=== PATIENT | female | born 1965 | race Caucasian/White ===

== ENCOUNTER → 2016-12-18 | Outpatient (CLI) | payer OTHER ==
[2016-12-18 12:15] LABS: INR 1.1 (<1.2); Prothrombin Time 11.1 sec (9.0-12.0)
== END | disposition home or self-care (01) ==
LOC: LABWHC1 11:41
PROVIDERS: ATTEND Dentist Oral and Maxillofacial Surgery
DX: D68.9 Coagulation defect, unspecified (principal)
CPT/HCPCS: 36415; 85610

== ENCOUNTER 2017-04-14 08:33 | Day surgery (SDC) | payer OTHER ==
[2017-04-10 12:06] VITALS: BMI 26.6
[~2017-04-14 08:33] MED LIST: DEXAMETHASONE SOD PHOSPHATE 10 MG/ML 1 ML VIAL IV ONE; HYDROmorphone 0.5 MG/0.5 ML SYRINGE IVP PRN; LACTATED RINGERS 1,000 ML IV SCH; MIDAZOLAM 2 MG/2 ML VIAL IV PRN; ONDANSETRON 4 MG/2 ML VIAL IVP ONE; Pre Op ABX Message 1 EACH MISC MISCELLANE ONE
[2017-04-14 09:25] VITALS: BP 111/72; PULSE 76; RESP 16; TEMP 98.9
[2017-04-14] MEDS ORDERED: LIDOCAINE 1% 20 ML VIAL (10MG/ML) FOR IV START INTRADERMA ONE (09:42)
[2017-04-14 09:54] LABS: INR 1.8 (<1.2); Prothrombin Time 16.7 sec (9.0-12.0)
== END 2017-04-14 10:16 | disposition home or self-care (01) ==
LOC: OR 08:33
PROVIDERS: ATTEND Obstetrics & Gynecology
DX: R93.8 Abnormal findings on diagnostic imaging of other specified body structures (principal); N88.2 Stricture and stenosis of cervix uteri; Z86.718 Personal history of other venous thrombosis and embolism; Z87.42 Personal history of other diseases of the female genital tract; Z80.49 Family history of malignant neoplasm of other genital organs; Z79.2 Long term (current) use of antibiotics; Z79.899 Other long term (current) drug therapy; Z88.1 Allergy status to other antibiotic agents
CPT/HCPCS: 85610

== ENCOUNTER 2017-04-21 07:28 | Day surgery (SDC) | payer OTHER ==
[2017-04-15 14:53] VITALS: BMI 27.1
[~2017-04-21 07:28] MED LIST changes: -MIDAZOLAM 2 MG/2 ML VIAL IV PRN
[2017-04-21 08:10] LABS: INR 1.2 (<1.2); Prothrombin Time 11.8 sec (9.0-12.0)
[2017-04-21] MEDS ORDERED: SUCCINYLCHOLINE CHLORIDE 100 MG/5 ML SYR IV ONE (08:42)
[2017-04-21] MEDS ORDERED: PROPOFOL 10 MG/ML 20 ML VIAL IV ONE (08:42)
[2017-04-21] MEDS ORDERED: KETOROLAC 30 MG/ML 1 ML VIAL ONE (08:42)
[2017-04-21] MEDS ORDERED: MIDAZOLAM 2 MG/2 ML VIAL ONE (08:42)
[2017-04-21] MEDS ORDERED: fentaNYL (PF) 50 MCG/ML 2 ML AMP ONE (08:42)
[2017-04-21] MEDS ORDERED: LIDOCAINE 1% INJ 10MG/ML (20 ML MDV) ONE (08:42)
--- NOTE | 2017-04-21 09:03 | P.OP ---
Date of Procedure: 04/21/17 Preoperative Diagnosis: Postmenopausal bleeding, increased endometrial thickness sonographically, cervical stenosis Postoperative Diagnosis: Pathology pending Procedure(s) Performed: Hysteroscopy, D&C Anesthesia: BARBA Surgeon: Mariaa Al Machine Etcher #1: Stated None Estimated Blood Loss (ml): 10 IV fluids (ml): 450 Urine output (ml): 200 Pathology: other (Endometrial curettings) Condition: stable Disposition: PACU Operative Findings: Essentially negative appearing intrauterine cavity, no obvious polyps fibroids or defects. Description of Procedure: Patient is brought to the operating suite where a general anesthetic is administered. She's placed in the dorsal lithotomy position. The cervix, vagina, perineum and lower abdomen are all prepped and draped in the usual sterile fashion. The appropriate timeout is performed to assure proper patient and procedural identification. Urine hCG is negative. Examination under anesthesia reveals a firm long closed cervix, small anteverted uterus and bilateral adnexa negative. The bladder is drained for approximately 200 mL of clear yellow urine. Weighted speculum was placed into the vagina. Anterior lip of the cervix is grasped with a double-tooth tenaculum. Uterus sounds to a depth of 8 cm in the anteverted position. The cervix is gently and systematically dilated using Hanks dilators. Hysteroscope was introduced and fluid is infused. The cavity is distended and inspected. It appears essentially negative to inspection, no obvious polyps, fibroids, tumors or defects. Hysteroscope was removed. A medium sharp curette is used and the cavity is gently and systematically curettaged for a scant amount of tissue. This is sent to pathology for evaluation. All sponge needle and enhancement counts are correct at the end of the procedure. Toradol is given prior to leaving the operative suite.. Pad is placed, hemostasis is excellent. All sponge needle and enhancement counts are correct at the end of the procedure. Patient is brought back to recovery room in very good condition with stable vital signs including blood pressure 107/64, pulse 71. Toradol is given prior to leaving the operative suite. Patient will follow-up with me in the office in 2 weeks.
[2017-04-21 09:20] VITALS: TEMP 97
[2017-04-21 10:23] VITALS: BP 113/73; PULSE 78; RESP 18
== END 2017-04-21 11:00 | disposition home or self-care (01) ==
LOC: OR 07:28
PROVIDERS: ATTEND Obstetrics & Gynecology
DX: N84.0 Polyp of corpus uteri (principal); N88.2 Stricture and stenosis of cervix uteri; N95.0 Postmenopausal bleeding; K21.9 Gastro-esophageal reflux disease without esophagitis; Z88.1 Allergy status to other antibiotic agents; Z79.01 Long term (current) use of anticoagulants; Z79.899 Other long term (current) drug therapy; Z86.718 Personal history of other venous thrombosis and embolism; Z86.711 Personal history of pulmonary embolism; Z98.51 Tubal ligation status; Z80.49 Family history of malignant neoplasm of other genital organs; Z80.0 Family history of malignant neoplasm of digestive organs; Z80.3 Family history of malignant neoplasm of breast
CPT/HCPCS: 58558; 81025; 88305; 85610; J2250; J1100; J2405; J2001; J3010; J1885; J0330; J2704

== ENCOUNTER → 2018-04-30 | Outpatient (CLI) | payer BC ==
[2018-04-30 17:10] LABS: Basophils % (A) 1 %; Eosinophils % (A) 2 %; HCT 39.2 % (34.0-46.0); Lymphocytes % (A) 37 %; MCH 31.4 pg (25.0-35.0); MCHC 33.3 g/dL (31.0-37.0); MCV 94.4 fL (80.0-100.0); Mean Platelet Volume 6.8; Monocytes % (A) 5 %; Neutrophils % (A) 53 %; Platelet Count 239 k/uL (150-450); RBC 4.15 m/uL (3.80-5.40); RDW 12.6 % (11.5-15.5)
[2018-04-30 17:11] LABS: Eosinophils # (A) 0.1 k/uL (0-0.7); Lymphocytes # (A) 1.9 k/uL (1.0-4.8); Monocytes # (A) 0.3 k/uL (0-1.0); Neutrophils # (A) 2.7 k/uL (1.3-7.7)
[2018-04-30 17:28] LABS: Appearance,Urine Clear (Clear); Bacteria,Urine Rare /hpf; Bilirubin,Urine Negative (Negative); Blood,Urine Moderate (Negative); Color,Urine Yellow; Glucose,Urine (UA) Negative (Negative); Ketones,Urine Negative (Negative); Leukocyte Esterase,Urine Negative (Negative); Mucus,Urine Rare /hpf; Nitrite,Urine Negative (Negative); PH, Urine 5.5 (5.0-8.0); Protein,Urine Negative (Negative); RBC,Urine 20 /hpf (0-5); Specific Gravity,Urine 1.012 (1.001-1.035); Squamous Epithelial Cell,Urine 4 /hpf (0-4); Urobilinogen,Urine <2.0 mg/dL (<2.0); WBC,Urine <1 /hpf (0-5)
[2018-05-01 02:22] LABS: Iron Saturation 21.15 (12.00-45.00)
[2018-05-01 02:37] LABS: Vitamin D 25 Hydroxy 23.7 ng/mL (30.0-100.0)
[2018-05-01 02:44] LABS: Calcium 8.9 mg/dL (8.7-10.3); Magnesium 1.8 mg/dL (1.5-2.4); Phosphorus 3.5 mg/dL (2.4-5.1); Potassium 4.1 mmol/L (3.5-5.5); Uric Acid 5.4 mg/dL (2.9-7.7)
== END | disposition home or self-care (01) ==
LOC: LABWHC1 16:43
PROVIDERS: ATTEND Nurse Practitioner Family
DX: N39.0 Urinary tract infection, site not specified (principal); M10.9 Gout, unspecified; R31.29 Other microscopic hematuria; D50.9 Iron deficiency anemia, unspecified; E83.39 Other disorders of phosphorus metabolism
CPT/HCPCS: 36415; 80048; 81001; 82306; 82728; 83540; 83550; 83735; 83970; 84100; 84550; 85025

== ENCOUNTER → 2018-06-30 | Outpatient (CLI) | payer BC ==
--- NOTE | 2018-06-30 16:10 | XR ---
EXAMINATION TYPE: XR chest 2V DATE OF EXAM: 06/30/2018 COMPARISON: NONE HISTORY: Cough TECHNIQUE: Frontal and lateral views of the chest are obtained. FINDINGS: Cardiac mediastinal silhouette, pulmonary vascularity and gilda are within normal limits. P atient is rotated. No evident airspace disease, pneumothorax, or pleural effusion. There is a calcifi cation present in the upper-outer convincing IMPRESSION: No acute cardiopulmonary process. Indeterminate calcification.
== END | disposition home or self-care (01) ==
LOC: RADXRMAIN 13:24
PROVIDERS: ATTEND Family Medicine
DX: J18.9 Pneumonia, unspecified organism (principal)
CPT/HCPCS: 71046

== ENCOUNTER 2018-09-01 13:50 | Emergency (ER) | payer BC ==
[2018-09-01 14:08] VITALS: RESP 16
[2018-09-01] MEDS ORDERED: SODIUM CHLORIDE 0.9% 500 ML 500 ML IV STA (14:30)
[2018-09-01] MEDS ORDERED: DIAZEPAM 5 MG/ML 2 ML INJ IVP STA (14:30)
[2018-09-01 14:44] LABS: Glucose,Whole Blood 106 mg/dL (75-99)
[2018-09-01 15:10] LABS: Basophils % (A) 1 %; Eosinophils # (A) 0.2 k/uL (0-0.7); Eosinophils % (A) 3 %; HGB 15.4 gm/dL (11.4-16.0); Lymphocytes # (A) 1.8 k/uL (1.0-4.8); Lymphocytes % (A) 30 %; MCH 30.9 pg (25.0-35.0); MCHC 33.5 g/dL (31.0-37.0); MCV 92.3 fL (80.0-100.0); Mean Platelet Volume 7.3; Monocytes # (A) 0.3 k/uL (0-1.0); Monocytes % (A) 5 %; Neutrophils # (A) 3.6 k/uL (1.3-7.7); Neutrophils % (A) 59 %; Platelet Count 238 k/uL (150-450); RBC 4.98 m/uL (3.80-5.40); WBC 6.1 k/uL (3.8-10.6)
[2018-09-01 15:17] LABS: ALT 35 U/L (9-52); AST 21 U/L (14-36); Albumin 4.9 g/dL (3.5-5.0); Alkaline Phosphatase 80 U/L (38-126); Anion Gap 11 mmol/L; Blood Urea Nitrogen 10 mg/dL (7-17); Calcium 10.1 mg/dL (8.4-10.2); Carbon Dioxide 25 mmol/L (22-30); Chloride 104 mmol/L (98-107); Glucose 100 mg/dL (74-99); Sodium 140 mmol/L (137-145); Total Bilirubin 0.3 mg/dL (0.2-1.3); Total Protein 7.9 g/dL (6.3-8.2)
[2018-09-01 15:22] LABS: INR 2.2 (<1.2); Prothrombin Time 21.2 sec (9.0-12.0)
--- NOTE | 2018-09-01 15:23 | XR ---
EXAMINATION TYPE: XR chest 2V DATE OF EXAM: 09/01/2018 COMPARISON: 06/30/2018 TECHNIQUE: PA and lateral views submitted. HISTORY: Dizziness FINDINGS: The lungs are clear and there is no pneumothorax, pleural effusion, or focal pneumonia. IMPRESSION: 1. No acute process.
[2018-09-01 15:57] LABS: Mucus,Urine Rare /hpf; RBC,Urine 1 /hpf (0-5); Squamous Epithelial Cell,Urine 1 /hpf (0-4)
--- NOTE | 2018-09-01 16:18 | CT ---
EXAMINATION TYPE: CT brain wo con DATE OF EXAM: 09/01/2018 COMPARISON: None HISTORY: Dizziness today CT DLP: 1169.[address] of the brain was performed. The ventricles, basal cisterns and sulci overlying the cerebral convexities demonstrate mild enlargem ent. There is no evidence for intracranial hemorrhage or sulcal effacement. There is decreased attenuation about the periventricular white matter and deep white matter of both c erebral hemispheres, compatible with chronic small vessel ischemia. Differential diagnosis does inclu de demyelination. No mass effects are seen.No midline shift. Osseous calvarium is intact. If symptoms persist consider MRI. IMPRESSION: 1. Age related atrophic and chronic small vessel ischemic change without acute intracranial process s een at this time.
--- NOTE | 2018-09-01 16:21 | CT ---
EXAMINATION TYPE: CT angio head neck DATE OF EXAM: 09/01/2018 COMPARISON: None HISTORY: Dizziness today CT DLP: 457.4 mGycm CONTRAST: Performed with IV Contrast, patient injected with 50 mL of Isovue 370. Combination Contrast CTA cervical carotids and [place] CTA cervical carotids with 3-D recons truction Contrast CTA of the cervical carotids was performed 3-D reconstruction imaging obtained at a separate workstation. Right carotid system: No significant plaque is seen of the right common carotid artery. There is No significant plaque also noted at the carotid bulb and proximal ICA. No significant diameter reductio n. ECA is patent. Right vertebral artery appears unremarkable. Left carotid system: No significant plaque is seen of the left common carotid artery. There is No si gnificant plaque also noted at the carotid bulb and proximal ICA. No significant diameter reduction. ECA is patent. Left vertebral artery appears unremarkable. IMPRESSION: 1. No significant diameter reduction to account for the patient's symptoms. CTA [place] with 3-D reconstruction Contrast CTA of the [place] of [place] was performed 3-D reconstruction imaging obtained at a separate workstation. Vertebrobasilar system as well as intracranial portions of the internal carotid arteries and their ma yadira tributaries are patent. I do not see evidence for sizable aneurysm or vascular malformation. Pl ease note MRI provides greater sensitivity and specificity. Visualized brain appears grossly unremar kable. IMPRESSION: 1. No significant abnormality.
--- NOTE | 2018-09-01 16:46 | ED ---
Dizziness HPI - General Chief Complaint: Dizziness Stated Complaint: dizziness Time Seen by Provider: 09/01/18 14:18 Source: patient Mode of arrival: wheelchair Limitations: no limitations - History of Present Illness Initial Comments: 53yo female presenting today for cc of dizziness. Pt states that midmorning today she developed sensation that her head was heavy and dizziness when lying down. Patient has history of Mnire's. She states she did have ringing in ear 2 day prior to onset of dizziness and took her lasix as prescribed by ENT. Pt states that the dizziness she felt today was slightly different from her typical vertigo and presented for evaluation. Patient denies syncope, presyncope, chest pain, dyspnea, dyspnea on exertion she denies nausea vomiting ataxia she denies muscle weakness of the upper or lower extremities she denies any facial asymmetry she denies speech or memory changes she denies any confusion or altered mentation. Patient denies leg swelling. Patient is on anticoagulation therapy for history of DVT. Patient drove herself to the emergency department. Upon arrival patient is alert and oriented 3. Appearing well no acute distress, ambulating without difficulty. - Related Data Home Medications Medication Instructions Recorded Confirmed Biotin 1 tab PO DAILY 06/06/15 09/01/18 L.acidoph,Paracasei, B.lactis 1 cap PO DAILY 06/06/15 09/01/18 [Probiotic] Magnesium 200 mg PO DAILY 06/06/15 09/01/18 Pantoprazole Sodium [Protonix] 20 mg PO DAILY 06/06/15 09/01/18 Potassium Chloride [Klor-Con 20] 20 meq PO DAILY 06/06/15 09/01/18 Warfarin [Coumadin] 6 mg PO DAILY 06/06/15 09/01/18 Biote Dim 150mg 1 tab PO DAILY 09/01/18 09/01/18 Calcitriol [Rocaltrol] 0.25 mcg PO FR 09/01/18 09/01/18 Cholecalciferol (Vitamin D3) 2,000 unit PO BID 09/01/18 09/01/18 [Vitamin D3] Progesterone, Micronized 200 mg PO DAILY 09/01/18 09/01/18 [Progesterone] Allergies Allergy/AdvReac Type Severity Reaction Status Date / Time Cephalosporins Allergy Unknown Elevated Verified 09/01/18 14:22 Heart Rate, Rash Review of Systems ROS Statement: Those systems with pertinent positive or pertinent negative responses have been documented in the HPI. ROS Other: All systems not noted in ROS Statement are negative. Past Medical History Past Medical History: Deep Vein Thrombosis (DVT), Eye Disorder, GERD/Reflux, Pul monary Embolus (PE) Additional Past Medical History / Comment(s): MIGRAINE HEADACHES,"KIDNEY DISEASE "- DOCTOR IS WATCHING History of Any Multi-Drug Resistant Organisms: None Reported Past Surgical History: No Surgical Hx Reported Past Anesthesia/Blood Transfusion Reactions: No Reported Reaction Past Psychological History: No Psychological Hx Reported Smoking Status: Never smoker - Past Family History Mother Family Medical History: No Reported History Father Family Medical History: Cancer Additional Family Medical History / Comment(s): COLON CANCER General Exam - General Exam Comments Initial Comments: General: The patient is awake and alert, in no distress, and does not appear acutely ill. Eye: +3 mm pupils are equal, round and reactive to light, extra-ocular movements are intact. No nystagmus. There is normal conjunctiva bilaterally. No signs of icterus. Tympanic membranes within normal limits bilaterally Ears, nose, mouth and throat: There are moist mucous membranes and no oral lesions. Neck: The neck is supple, there is no tenderness or JVD. Cardiovascular: There is a regular rate and rhythm. No murmur, rub or gallop is appreciated. Respiratory: Lungs are clear to auscultation, respirations are non-labored, b reath sounds are equal. No wheezes, stridor, rales, or rhonchi. Gastrointestinal: Soft, non-distended, non-tender abdomen without masses or organomegaly noted. There is no rebound or guarding present. Musculoskeletal: Normal ROM, no tenderness. Strength 5/5. Sensation intact. Pulses equal bilaterally 2+. Neurological: A&O x 3. CN II-XII intact, memory intact to immediately, intermediate and economic research analyst recall. Able to follow simple verbal. Able to name a common object (pen). High quality, labial (pa) and lingual (la) speech. Low quality posterior pharynx/larynx (ga) voice sounds. Able to express general knowledge (days in a week). No hemineglect or inattention noted. Finger agnosia (-) and spatially oriented (identified L index finger touched R shoulder with L index finger). Light touch and temperature sensation present over the face, chest, abdomen, back, UE bilaterally, and LE bilaterally. Able to localize point during point localization b/l and extinction. No visible bulk atrophy, hypertrophy, fasciculations, or myoclonus of the UE or LE b/l. Full PROM in UE and LE b/l. Bilateral muscle strength 5/5 for the following muscles: deltoid, biceps, triceps, brachioradialis, wrist extensors/flexor, hip flexor, hip abductors/adductors, hamstrings, quadriceps, feet dorsiflexors/plantar flexors. Finger to nose, finger to the examiners finger, and heel to cavazos coordinated and accurate b/l. Coordinated and even demonstration of hand flip, finger to thumb, and toe tap b/l. Gait is coordinated and even in stride with tandem, toe and heel walk. (-) Romberg. (-) pronator drift. No nuchal rigidity. (-) Skin: Skin is warm and dry and no rashes or lesions are noted. Psychiatric: Cooperative, appropriate mood & affect, normal judgment. Limitations: no limitations Course Vital Signs 09/01/18 09/01/18 09/01/18 14:05 16:16 16:20 Temperature 98.8 F 98.6 F Pulse Rate 89 88 80 Respiratory 16 16 18 Rate Blood Pressure 124/80 107/69 O2 Sat by Pulse 98 93 L 98 Oximetry 09/01/18 17:13 Temperature 98.1 F Pulse Rate 82 Respiratory 16 Rate Blood Pressure 103/72 O2 Sat by Pulse 98 Oximetry EKG Findings - EKG Comments: EKG Findings:: A 12-lead EKG was performed and shows the following: Rate is 88bpm, and rhythm is normal sinus. There are normal QRS complexes and normal R- wave progression. ST segments have no elevation or depression, and MS segments appear normal. MS interval 134 ms, QRS duration 88 ms, QT/QTC 354/428 ms. Reviewed by attending Dr. Joshi and myself. Medical Decision Making - Medical Decision Making 53-year-old female presenting for dizziness. History of Mnire's. Patient does admit to ringing in the right ear 2 days prior to onset of dizziness. Patient has been taking Lasix as prescribed by ENT. Patient denies any focal neurological deficits. No focal neurological deficits on examination. Patient denies any chest pain short suppress his dyspnea on exertion or lower extremity swelling. The patient stated that dizziness was slightly different than her typical Mnire's CT without contrast and CT angio obtained there was no evidence of disease of posterior circulation no acute intracranial process. At this time I feel patient is stable for discharge with outpatient ENT and neurology follow-up. I did recommend MRI if symptoms persist. If symptoms worsen or change patient is to return to the emergency department. I discussed the case with attending provider Dr. Joshi reviewed imaging studies as well as laboratory values. He is agreeable patient care plan at discharge. Upon patient's reevaluation she states her symptoms have resolved after the Valium. Patient appears well there continues to be no evidence of focal neurological deficits. Patient discharged appearing well aware fall return parameters importance of outpatient follow-up. - Lab Data Result diagrams: 09/01/18 14:48 09/01/18 14:48 Lab Results 09/01/18 09/01/18 09/01/18 Range/Units 14:43 14:48 14:48 WBC 6.1 (3.8-10.6) k/uL RBC 4.98 (3.80-5.40) m/uL Hgb 15.4 (11.4-16.0) gm/dL Hct 46.0 (34.0-46.0) % MCV 92.3 (80.0-100.0) fL MCH 30.9 (25.0-35.0) pg MCHC 33.5 (31.0-37.0) g/dL RDW 14.0 (11.5-15.5) % Plt Count 238 (150-450) k/uL Neutrophils % 59 % Lymphocytes % 30 % Monocytes % 5 % Eosinophils % 3 % Basophils % 1 % Neutrophils # 3.6 (1.3-7.7) k/uL Lymphocytes # 1.8 (1.0-4.8) k/uL Monocytes # 0.3 (0-1.0) k/uL Eosinophils # 0.2 (0-0.7) k/uL Basophils # 0.0 (0-0.2) k/uL PT (9.0-12.0) sec INR (<1.2) Sodium 140 (137-145) mmol/L Potassium 4.0 (3.5-5.1) mmol/L Chloride 104 (98-107) mmol/L Carbon Dioxide 25 (22-30) mmol/L Anion Gap 11 mmol/L BUN 10 (7-17) mg/dL Creatinine 0.80 (0.52-1.04) mg/dL Est GFR (CKD-EPI)AfAm >90 (>60 ml/min/1.73 sqM) Est GFR (CKD-EPI)NonAf 85 (>60 ml/min/1.73 sqM) Glucose 100 H (74-99) mg/dL POC Glucose (mg/dL) 106 H (75-99) mg/dL POC Glu Psychotherapist ID Yamileth Dover Calcium 10.1 (8.4-10.2) mg/dL Total Bilirubin 0.3 (0.2-1.3) mg/dL AST 21 (14-36) U/L ALT 35 (9-52) U/L Alkaline Phosphatase 80 (38-126) U/L Troponin I (0.000-0.034) ng/mL Total Protein 7.9 (6.3-8.2) g/dL Albumin 4.9 (3.5-5.0) g/dL Urine Color Urine Appearance (Clear) Urine pH (5.0-8.0) Ur Specific Starlight (1.001-1.035) Urine Protein (Negative) Urine Glucose (UA) (Negative) Urine Ketones (Negative) Urine Blood (Negative) Urine Nitrite (Negative) Urine Bilirubin (Negative) Urine Urobilinogen (<2.0) mg/dL Ur Leukocyte Esterase (Negative) Urine RBC (0-5) /hpf Urine WBC (0-5) /hpf Ur Squamous Epith Cells (0-4) /hpf Amorphous Sediment (None) /hpf Urine Bacteria (None) /hpf Urine Mucus (None) /hpf 09/01/18 09/01/18 09/01/18 Range/Units 14:48 14:48 14:55 WBC (3.8-10.6) k/uL RBC (3.80-5.40) m/uL Hgb (11.4-16.0) gm/dL Hct (34.0-46.0) % MCV (80.0-100.0) fL MCH (25.0-35.0) pg MCHC (31.0-37.0) g/dL RDW (11.5-15.5) % Plt Count (150-450) k/uL Neutrophils % % Lymphocytes % % Monocytes % % Eosinophils % % Basophils % % Neutrophils # (1.3-7.7) k/uL Lymphocytes # (1.0-4.8) k/uL Monocytes # (0-1.0) k/uL Eosinophils # (0-0.7) k/uL Basophils # (0-0.2) k/uL PT 21.2 H (9.0-12.0) sec INR 2.2 H (<1.2) Sodium (137-145) mmol/L Potassium (3.5-5.1) mmol/L Chloride (98-107) mmol/L Carbon Dioxide (22-30) mmol/L Anion Gap mmol/L BUN (7-17) mg/dL Creatinine (0.52-1.04) mg/dL Est GFR (CKD-EPI)AfAm (>60 ml/min/1.73 sqM) Est GFR (CKD-EPI)NonAf (>60 ml/min/1.73 sqM) Glucose (74-99) mg/dL POC Glucose (mg/dL) (75-99) mg/dL POC Glu Psychotherapist ID Calcium (8.4-10.2) mg/dL Total Bilirubin (0.2-1.3) mg/dL AST (14-36) U/L ALT (9-52) U/L Alkaline Phosphatase (38-126) U/L Troponin I <0.012 (0.000-0.034) ng/mL Total Protein (6.3-8.2) g/dL Albumin (3.5-5.0) g/dL Urine Color Colorless Urine Appearance Clear (Clear) Urine pH 5.5 (5.0-8.0) Ur Specific Starlight 1.003 (1.001-1.035) Urine Protein Negative (Negative) Urine Glucose (UA) Negative (Negative) Urine Ketones Negative (Negative) Urine Blood Small H (Negative) Urine Nitrite Negative (Negative) Urine Bilirubin Negative (Negative) Urine Urobilinogen <2.0 (<2.0) mg/dL Ur Leukocyte Esterase Negative (Negative) Urine RBC 1 (0-5) /hpf Urine WBC 1 (0-5) /hpf Ur Squamous Epith Cells 1 (0-4) /hpf Amorphous Sediment Rare H (None) /hpf Urine Bacteria Rare H (None) /hpf Urine Mucus Rare H (None) /hpf Disposition Clinical Impression: Dizziness Disposition: HOME SELF-CARE Condition: Good Instructions (If sedation given, give patient instructions): Dizziness (ED) Additional Instructions: Please use medication as discussed. Please follow-up with ENT as discussed. Please follow up with neurology. Please follow-up with family doctor in the next 2 days.. Please return to emergency room if the symptoms increase or worsen or for any other concerns. Is patient prescribed a controlled substance at d/c from ED?: No Referrals: Jd Dailey DO [Primary Care Provider] - 1-2 days Mathew Junior DO [Doctor of Osteopathic Medicine] - 1-2 days Luis Canales DO [STAFF PHYSICIAN] - 1-2 days Time of Disposition: 16:45
[2018-09-01 17:14] VITALS: BP 103/72; PULSE 82; TEMP 98.1
[2018-09-01 17:15] LABS: Amorphous Sediment,Urine Rare /hpf; Appearance,Urine Clear (Clear); Bacteria,Urine Rare /hpf; Bilirubin,Urine Negative (Negative); Blood,Urine Small (Negative); Color,Urine Colorless; Glucose,Urine (UA) Negative (Negative); Ketones,Urine Negative (Negative); Leukocyte Esterase,Urine Negative (Negative); Nitrite,Urine Negative (Negative); PH, Urine 5.5 (5.0-8.0); Protein,Urine Negative (Negative); Specific Gravity,Urine 1.003 (1.001-1.035); Urobilinogen,Urine <2.0 mg/dL (<2.0); WBC,Urine 1 /hpf (0-5)
== END 2018-09-01 17:24 | disposition home or self-care (01) ==
LOC: EC 13:50
DX: R42 Dizziness and giddiness (principal); K21.9 Gastro-esophageal reflux disease without esophagitis; Z86.711 Personal history of pulmonary embolism; Z86.718 Personal history of other venous thrombosis and embolism; Z79.01 Long term (current) use of anticoagulants; Z79.52 Long term (current) use of systemic steroids; Z79.899 Other long term (current) drug therapy; Z88.1 Allergy status to other antibiotic agents
CPT/HCPCS: 36415; 93005; 80053; 84484; 85025; 85610; 81001; 71046; 70496; 70450; 70498; 99284; 96374; 96361; J3360; Q9967

== ENCOUNTER → 2018-11-03 | Outpatient (CLI) | payer BC ==
[2018-11-03 16:51] LABS: Basophils % (A) 1 %; Eosinophils # (A) 0.2 k/uL (0-0.7); Eosinophils % (A) 3 %; HCT 39.9 % (34.0-46.0); HGB 13.3 gm/dL (11.4-16.0); Lymphocytes # (A) 1.8 k/uL (1.0-4.8); Lymphocytes % (A) 35 %; MCH 31.3 pg (25.0-35.0); MCHC 33.4 g/dL (31.0-37.0); MCV 93.7 fL (80.0-100.0); Monocytes # (A) 0.3 k/uL (0-1.0); Monocytes % (A) 5 %; Neutrophils # (A) 2.9 k/uL (1.3-7.7); Neutrophils % (A) 55 %; Platelet Count 204 k/uL (150-450); RBC 4.26 m/uL (3.80-5.40); RDW 12.9 % (11.5-15.5); WBC 5.3 k/uL (3.8-10.6)
[2018-11-03 17:16] LABS: Appearance,Urine Cloudy (Clear); Bilirubin,Urine Negative (Negative); Blood,Urine Small (Negative); Calcium Oxalate Crystals,Urine Many /hpf; Color,Urine Yellow; Glucose,Urine (UA) Negative (Negative); Ketones,Urine Negative (Negative); Leukocyte Esterase,Urine Negative (Negative); Mucus,Urine Rare /hpf; Nitrite,Urine Negative (Negative); Protein,Urine Negative (Negative); RBC,Urine 24 /hpf (0-5); Specific Gravity,Urine 1.018 (1.001-1.035); Squamous Epithelial Cell,Urine 2 /hpf (0-4); Urobilinogen,Urine <2.0 mg/dL (<2.0); WBC,Urine 4 /hpf (0-5)
[2018-11-03 23:17] LABS: Parathyroid Hormone Intact 88.4 pg/mL (14.0-72.0)
[2018-11-03 23:27] LABS: Iron Saturation 17.82 (12.00-45.00)
[2018-11-03 23:36] LABS: Vitamin D 25 Hydroxy 21.2 ng/mL (30.0-100.0)
[2018-11-04 04:25] LABS: Total Protein,Urine Random 5.8 mg/dL (0.0-13.5)
[2018-11-04 06:10] LABS: African American GFR (CKD) 66.4 (60.0-200.0); Albumin 4.2 g/dL (3.80-4.90); Anion Gap 9.7 mmol/L (4.00-12.00); BUN/Creat Ratio 10.91 Ratio (12.00-20.00); Carbon Dioxide 26.3 mmol/L (21.6-31.8); Potassium 3.9 mmol/L (3.5-5.5); Uric Acid 5.7 mg/dL (2.9-7.7)
[2018-11-04 06:22] LABS: Creatinine,Urine Random 133.9 mg/dL
== END | disposition home or self-care (01) ==
LOC: LABWHC1 16:29
PROVIDERS: ATTEND Internal Medicine Nephrology
DX: E55.9 Vitamin D deficiency, unspecified (principal); N17.9 Acute kidney failure, unspecified; M10.9 Gout, unspecified; N39.0 Urinary tract infection, site not specified; D64.9 Anemia, unspecified; R80.9 Proteinuria, unspecified
CPT/HCPCS: 36415; 80048; 81001; 82040; 82306; 82570; 82728; 83540; 83550; 83735; 83970; 84100; 84156; 84550; 85025

== ENCOUNTER → 2018-12-14 | Outpatient (CLI) | payer BC ==
--- NOTE | 2018-12-14 13:38 | US ---
EXAMINATION TYPE: US kidneys/renal and bladder DATE OF EXAM: 12/14/2018 COMPARISON: NONE CLINICAL HISTORY: N18.2 chronic kidney disease, stage 2. CKD, stage 2 EXAM MEASUREMENTS: Right Kidney: 10.3 x 4.6 x 4.2 cm Left Kidney: 10.6 x 4.4 x 4.3 cm Post Void Residual Volume: 23.7 mL Right Kidney: Mildly dilated renal pelvis, otherwise appeared wnl Left Kidney: Lower pole gassed out, otherwise appeared wnl Bladder: wnl Bilateral Jets seen: Yes Normal Post Void Residual: Yes There is mild right-sided pyelocaliectasis No nephrolithiasis is seen. No masses are identified. Th e urinary bladder is anechoic. Bilateral ureteral jets are seen. IMPRESSION: Mild right-sided hydronephrosis may warrant further clinical workup.
== END | disposition home or self-care (01) ==
LOC: RADUSWWP 12:46
PROVIDERS: ATTEND Internal Medicine Nephrology
DX: N18.2 Chronic kidney disease, stage 2 (mild) (principal)
CPT/HCPCS: 76770

== ENCOUNTER → 2019-05-16 | Outpatient (CLI) | payer BC ==
[2019-05-16 17:33] LABS: Basophils % (A) 1 %; Eosinophils # (A) 0.1 k/uL (0-0.7); Eosinophils % (A) 3 %; HCT 41.3 % (34.0-46.0); HGB 13.3 gm/dL (11.4-16.0); Lymphocytes # (A) 1.7 k/uL (1.0-4.8); Lymphocytes % (A) 39 %; MCH 30.9 pg (25.0-35.0); MCHC 32.3 g/dL (31.0-37.0); Mean Platelet Volume 7.3; Monocytes # (A) 0.3 k/uL (0-1.0); Monocytes % (A) 6 %; Neutrophils # (A) 2.1 k/uL (1.3-7.7); Neutrophils % (A) 49 %; Platelet Count 215 k/uL (150-450); RBC 4.31 m/uL (3.80-5.40); RDW 12.5 % (11.5-15.5); WBC 4.3 k/uL (3.8-10.6)
[2019-05-16 17:38] LABS: Appearance,Urine Cloudy (Clear); Bacteria,Urine Rare /hpf; Bilirubin,Urine Negative (Negative); Blood,Urine Small (Negative); Color,Urine Light Yellow; Glucose,Urine (UA) Negative (Negative); Hyaline Casts,Urine 1 /lpf (0-2); Ketones,Urine Negative (Negative); Leukocyte Esterase,Urine Negative (Negative); Mucus,Urine Rare /hpf; Nitrite,Urine Negative (Negative); PH, Urine 5.5 (5.0-8.0); Protein,Urine Negative (Negative); RBC,Urine 4 /hpf (0-5); Specific Gravity,Urine 1.011 (1.001-1.035); Squamous Epithelial Cell,Urine 6 /hpf (0-4); Urobilinogen,Urine <2.0 mg/dL (<2.0); WBC,Urine 1 /hpf (0-5)
[2019-05-17 01:51] LABS: % Iron Saturation 14.84 (12.00-45.00); Albumin 4.2 g/dL (3.80-4.90); Anion Gap 5.3 mmol/L (4.00-12.00); BUN/Creat Ratio 14.44 Ratio (12.00-20.00); Calcium 9.1 mg/dL (8.7-10.3); Carbon Dioxide 25.7 mmol/L (21.6-31.8); Magnesium 1.9 mg/dL (1.5-2.4); Non-African American GFR(CKD) 72.5 (60.0-200.0); Phosphorus 3.2 mg/dL (2.4-5.1); Potassium 4.1 mmol/L (3.5-5.5); Uric Acid 5.7 mg/dL (2.9-7.7)
[2019-05-17 01:59] LABS: Creatinine,Urine Random 59.9 mg/dL
[2019-05-17 02:00] LABS: Ferritin 66.4 ng/mL (10.0-291.0); Total Protein,Urine Random 4.1 mg/dL (0.0-13.5)
== END | disposition home or self-care (01) ==
LOC: LABWHC1 16:57
PROVIDERS: ATTEND Nurse Practitioner Family
DX: E55.9 Vitamin D deficiency, unspecified (principal); N18.2 Chronic kidney disease, stage 2 (mild); D63.1 Anemia in chronic kidney disease; M10.9 Gout, unspecified
CPT/HCPCS: 36415; 80048; 81001; 82040; 82306; 82570; 82728; 83540; 83550; 83735; 83970; 84100; 84156; 84550; 85025

== ENCOUNTER 2019-09-21 16:44 | Emergency (ER) | payer BC ==
[2019-09-21 16:50] VITALS: BP 134/71; PULSE 85; RESP 18; TEMP 98.1
--- NOTE | 2019-09-21 19:00 | ED ---
General Adult HPI - General Chief complaint: Extremity Injury, Lower Stated complaint: rt leg swelling Time Seen by Provider: 09/21/19 16:53 Source: patient, RN notes reviewed Mode of arrival: ambulatory Limitations: no limitations - History of Present Illness Initial comments: Patient is a pleasant 54-year-old female presenting to the emergency Department with complaints of right foot swelling. Patient had symptoms today. Symptoms have started to improve a little bit already. Patient does have history of DVT and is on Coumadin for this. Patient also has chronic right foot and ankle pain and does see a specialist for this. Patient denies any chest pain or difficulty breathing. Patient has been taking her Coumadin, last INR was 2.6. - Related Data Home Medications Medication Instructions Recorded Confirmed Biotin 1 tab PO DAILY 06/06/15 09/01/18 L.acidoph,Paracasei, B.lactis 1 cap PO DAILY 06/06/15 09/01/18 [Probiotic] Magnesium 200 mg PO DAILY 06/06/15 09/01/18 Pantoprazole Sodium [Protonix] 20 mg PO DAILY 06/06/15 09/01/18 Potassium Chloride [Klor-Con 20] 20 meq PO DAILY 06/06/15 09/01/18 Warfarin [Coumadin] 6 mg PO DAILY 06/06/15 09/01/18 Biote Dim 150mg 1 tab PO DAILY 09/01/18 09/01/18 Calcitriol [Rocaltrol] 0.25 mcg PO FR 09/01/18 09/01/18 Cholecalciferol (Vitamin D3) 2,000 unit PO BID 09/01/18 09/01/18 [Vitamin D3] Progesterone, Micronized 200 mg PO DAILY 09/01/18 09/01/18 [Progesterone] Allergies Allergy/AdvReac Type Severity Reaction Status Date / Time Cephalosporins Allergy Unknown Elevated Verified 09/21/19 16:50 Heart Rate, Rash Review of Systems ROS Statement: Those systems with pertinent positive or pertinent negative responses have been documented in the HPI. ROS Other: All systems not noted in ROS Statement are negative. Constitutional: Denies: fever Eyes: Denies: eye pain ENT: Denies: ear pain Respiratory: Denies: cough, dyspnea Cardiovascular: Denies: chest pain Endocrine: Denies: fatigue Gastrointestinal: Denies: abdominal pain Genitourinary: Denies: dysuria Musculoskeletal: Reports: as per HPI Skin: Denies: rash Neurological: Denies: weakness Past Medical History Past Medical History: Deep Vein Thrombosis (DVT), Eye Disorder, GERD/Reflux, Pulmonary Embolus (PE) Additional Past Medical History / Comment(s): MIGRAINE HEADACHES,"KIDNEY DISEASE "- DOCTOR IS WATCHING History of Any Multi-Drug Resistant Organisms: None Reported Past Surgical History: Bowel Resection Past Anesthesia/Blood Transfusion Reactions: No Reported Reaction Past Psychological History: Depression Smoking Status: Never smoker Past Alcohol Use History: Occasional Past Drug Use History: None Reported - Past Family History Mother Family Medical History: No Reported History Father Family Medical History: Cancer Additional Family Medical History / Comment(s): COLON CANCER General Exam Limitations: no limitations General appearance: alert, in no apparent distress Head exam: Present: normocephalic Neck exam: Present: normal inspection Respiratory exam: Present: normal lung sounds bilaterally Cardiovascular Exam: Present: regular rate, normal rhythm Expanded Peripheral pulses: 2+: Dorsalis Pedis (R), Dorsalis Pedis (L) GI/Abdominal exam: Present: soft. Absent: tenderness Extremities exam: Present: pedal edema (Mild edema right foot and ankle). Absent: calf tenderness Neurological exam: Present: alert Psychiatric exam: Present: normal affect, normal mood Skin exam: Present: normal color Course Vital Signs 09/21/19 16:47 Temperature 98.1 F Pulse Rate 85 Respiratory 18 Rate Blood Pressure 134/71 O2 Sat by Pulse 99 Oximetry Medical Decision Making - Medical Decision Making Patient offered to have her INR checked however refused. Patient updated on results and need for follow-up. - Radiology Data Radiology results: report reviewed (Ultrasound negative for DVT.) Disposition Clinical Impression: Edema of right foot Disposition: HOME SELF-CARE Condition: Stable Instructions (If sedation given, give patient instructions): Leg Edema (ED) Additional Instructions: Please follow-up with primary care physician as well as your foot doctor in the next couple days for recheck. Have your INR checked as scheduled. Return for chest pain or difficulty breathing, increased leg pain or swelling, worsening or changing symptoms or other concerns. Is patient prescribed a controlled substance at d/c from ED?: No Referrals: Jd Dailey DO [Primary Care Provider] - 1-2 days Time of Disposition: 19:00
--- NOTE | 2019-09-22 11:33 | US ---
EXAMINATION TYPE: US venous doppler duplex LE RT DATE OF EXAM: 09/21/2019 5:29 PM COMPARISON: NONE CLINICAL HISTORY: swelling. Swelling right ankle and foot for a couple days. Hx DVT, PE. Patient says she takes warfarin. SIDE PERFORMED: Right TECHNIQUE: The lower extremity deep venous system is examined utilizing real time linear array sonog anjelica with graded compression, doppler sonography and color-flow sonography. VESSELS IMAGED: External Iliac Vein (EIV) Common Femoral Vein Deep Femoral Vein Greater Saphenous Vein * Femoral Vein Popliteal Vein Small Saphenous Vein * Proximal Calf Veins (* superficial vessels) Right Leg: No evidence of DVT in veins imaged at this time from prox calf veins to EIV. Duplicate ve ins seen femoral vein and popliteal. IMPRESSION: No ultrasound evidence for acute DVT in the right lower extremity.
== END 2019-09-21 19:38 | disposition home or self-care (01) ==
LOC: EC 16:44
DX: R60.0 Localized edema (principal); K21.9 Gastro-esophageal reflux disease without esophagitis; Z79.01 Long term (current) use of anticoagulants; Z79.899 Other long term (current) drug therapy; Z88.1 Allergy status to other antibiotic agents; Z86.718 Personal history of other venous thrombosis and embolism; Z86.711 Personal history of pulmonary embolism
CPT/HCPCS: 99283

== ENCOUNTER → 2019-11-08 | Outpatient (CLI) | payer BC ==
--- NOTE | 2019-11-08 17:27 | FL ---
EXAMINATION TYPE: FL barium enema w air contrast DATE OF EXAM: 11/08/2019 COMPARISON: NONE HISTORY: History of multiple small bowel resections. Incomplete colonoscopy. Chronic diarrhea, blood in stool, perianal fissures. TECHNIQUE: A double contrast barium enema study is performed. FINDINGS: Anti Tank Missileman view of the abdomen shows overall non-obstructive bowel gas pattern, right hemiabdom inal suture material, and cholelithiasis. No evidence of any mass or polyp, obstructing or constricting lesion throughout the colon. No signif icant diverticular disease is noted. Appendix was not visualized. No terminal ileal reflux. IMPRESSION: No evidence of colonic mass, obstruction, or significant diverticular disease.
== END ==
LOC: RADFLMAIN 09:06
PROVIDERS: ATTEND Surgery
DX: Z12.11 Encounter for screening for malignant neoplasm of colon (principal); Z80.0 Family history of malignant neoplasm of digestive organs
CPT/HCPCS: 74280

== ENCOUNTER → 2020-06-22 | Outpatient (CLI) | payer BC ==
[2020-06-22 13:42] LABS: Appearance,Urine Clear (Clear); Bilirubin,Urine Negative (Negative); Blood,Urine Trace (Negative); Color,Urine Light Yellow; Glucose,Urine (UA) Negative (Negative); Ketones,Urine Negative (Negative); Leukocyte Esterase,Urine Negative (Negative); Nitrite,Urine Negative (Negative); Protein,Urine Negative (Negative); RBC,Urine 2 /hpf (0-5); Specific Gravity,Urine 1.006 (1.001-1.035); Squamous Epithelial Cell,Urine 1 /hpf (0-4); Urobilinogen,Urine <2.0 mg/dL (<2.0); WBC,Urine <1 /hpf (0-5)
[2020-06-22 14:14] LABS: Creatinine,Urine Random 39.2 mg/dL; Protein/Creatinine Ratio,Urine 0.332
[2020-06-22 19:03] LABS: Basophils # (A) 0.03 X 10*3/uL (0.00-0.10); Basophils % (A) 0.5 %; Eosinophils # (A) 0.12 X 10*3/uL (0.04-0.35); Eosinophils % (A) 1.9 %; HCT 37.7 % (37.2-46.3); HGB 12.4 g/dL (12.0-15.0); Lymphocytes # (A) 2.23 X 10*3/uL (0.90-5.00); Lymphocytes % (A) 35.9 %; MCH 33.5 pg (27.0-32.0); MCHC 32.9 g/dL (32.0-37.0); MCV 101.9 fL (80.0-97.0); Mean Platelet Volume 9.6 fL (9.5-12.2); Monocytes # (A) 0.61 X 10*3/uL (0.20-1.00); Monocytes % (A) 9.8 %; Neutrophils # (A) 3.21 X 10*3/uL (1.80-7.70); Neutrophils % (A) 51.7 %; Platelet Count 221 X 10*3/uL (140-440); RDW 14.6 % (11.5-14.5); WBC 6.21 X 10*3/uL (4.50-10.00)
[2020-06-22 20:54] LABS: % Iron Saturation 18.51 (12.00-45.00); African American GFR (CKD) 73.4 (60.0-200.0); Albumin 4.6 g/dL (3.80-4.90); Anion Gap 7.5 mmol/L (4.00-12.00); Carbon Dioxide 28.5 mmol/L (21.6-31.8); Non-African American GFR(CKD) 63.4 (60.0-200.0); Phosphorus 3.8 mg/dL (2.4-5.1); Potassium 4.4 mmol/L (3.5-5.5); Uric Acid 5.3 mg/dL (2.9-7.7)
[2020-06-22 21:01] LABS: Ferritin 89.9 ng/mL (10.0-291.0)
== END | disposition home or self-care (01) ==
LOC: LABWHC1 12:09
PROVIDERS: ATTEND Internal Medicine Nephrology
DX: M10.9 Gout, unspecified (principal); D63.1 Anemia in chronic kidney disease; N25.81 Secondary hyperparathyroidism of renal origin; N18.30 Chronic kidney disease, stage 3 unspecified; R80.9 Proteinuria, unspecified; R31.29 Other microscopic hematuria
CPT/HCPCS: 36415; 80048; 81001; 82040; 82306; 82570; 82728; 83540; 83550; 83735; 83970; 84100; 84156; 84550; 85025

== ENCOUNTER → 2020-12-28 | Outpatient (CLI) | payer BC ==
[2020-12-28 16:29] LABS: Appearance,Urine Clear (Clear); Bilirubin,Urine Negative (Negative); Blood,Urine Negative (Negative); Color,Urine Light Yellow; Glucose,Urine (UA) Negative (Negative); Ketones,Urine Negative (Negative); Leukocyte Esterase,Urine Negative (Negative); Nitrite,Urine Negative (Negative); Protein,Urine Negative (Negative); Specific Gravity,Urine 1.006 (1.001-1.035); Urobilinogen,Urine <2.0 mg/dL (<2.0)
[2020-12-28 17:01] LABS: Creatinine,Urine Random 40.7 mg/dL; Protein/Creatinine Ratio,Urine 0.319
[2020-12-28 23:18] LABS: Basophils # (A) 0.03 X 10*3/uL (0.00-0.10); Basophils % (A) 0.6 %; Eosinophils # (A) 0.09 X 10*3/uL (0.04-0.35); Eosinophils % (A) 1.7 %; HCT 37.2 % (37.2-46.3); HGB 12.3 g/dL (12.0-15.0); Lymphocytes # (A) 2.75 X 10*3/uL (0.90-5.00); Lymphocytes % (A) 52.9 %; MCH 34.3 pg (27.0-32.0); MCHC 33.1 g/dL (32.0-37.0); MCV 103.6 fL (80.0-97.0); Monocytes # (A) 0.39 X 10*3/uL (0.20-1.00); Monocytes % (A) 7.5 %; Neutrophils # (A) 1.93 X 10*3/uL (1.80-7.70); Neutrophils % (A) 37.1 %; Platelet Count 233 X 10*3/uL (140-440); RBC 3.59 X 10*6/uL (4.10-5.20); RDW 12.8 % (11.5-14.5)
[2020-12-30 10:08] LABS: % Iron Saturation 21.55 (12.00-45.00); African American GFR (CKD) 83.4 (60.0-200.0); Albumin 3.9 g/dL (3.80-4.90); Anion Gap 12.6 mmol/L (4.00-12.00); BUN/Creat Ratio 13.33 Ratio (12.00-20.00); Carbon Dioxide 20.4 mmol/L (21.6-31.8); Magnesium 1.8 mg/dL (1.5-2.4); Phosphorus 3.6 mg/dL (2.4-5.1); Potassium 3.4 mmol/L (3.5-5.5); Uric Acid 4.7 mg/dL (2.9-7.7)
[2020-12-30 10:17] LABS: Ferritin 122.1 ng/mL (10.0-291.0)
== END | disposition home or self-care (01) ==
LOC: LABWHC1 14:45
PROVIDERS: ATTEND Nurse Practitioner Family
DX: N18.31 Chronic kidney disease, stage 3a (principal); N25.81 Secondary hyperparathyroidism of renal origin; E55.9 Vitamin D deficiency, unspecified; M10.9 Gout, unspecified; D64.9 Anemia, unspecified; R80.9 Proteinuria, unspecified; N39.0 Urinary tract infection, site not specified
CPT/HCPCS: 36415; 80048; 81003; 82040; 82306; 82570; 82728; 83540; 83550; 83735; 83970; 84100; 84156; 84550; 85025

== ENCOUNTER → 2021-02-14 | Outpatient (CLI) | payer BC ==
--- NOTE | 2021-02-14 11:51 | US ---
EXAMINATION TYPE: US kidneys/renal and bladder DATE OF EXAM: 02/14/2021 COMPARISON: None CLINICAL HISTORY: 55-year-old female N18.3 chronic kidney disease stage 3. Abnormal labs. No pain at this time. TECHNIQUE: Multiple sonographic images of the kidneys and bladder are obtained. FINDINGS: EXAM MEASUREMENTS: Right Kidney: 10.3 x 4.2 x 4.6 cm Left Kidney: 10.4 x 4.0 x 4.4 cm Post Void Residual Volume: 18.7 mL Right Kidney: Hydronephrosis with decreased volume change after post void. Left Kidney: Either a 1.4 cm parapelvic cyst or extrarenal pelvis. No hydronephrosis. Bladder: distended, anechoic Right jet seen Normal Post Void Residual: Yes Incidental finding: Gallstones seen and echogenic liver parenchyma. IMPRESSION: 1. Mild right-sided hydronephrosis. Further evaluation as clinically indicated. 2. The presence of a right ureteral jet argues against a complete obstruction. 3. Cholelithiasis and hepatic steatosis incidentally seen. 4. Increased post void bladder volume of 19 mL falls with acceptable limits.
== END | disposition home or self-care (01) ==
LOC: RADUSWWP 09:02
PROVIDERS: ATTEND Internal Medicine Nephrology
DX: K80.20 Calculus of gallbladder without cholecystitis without obstruction (principal); N18.31 Chronic kidney disease, stage 3a; N13.30 Unspecified hydronephrosis; K76.0 Fatty (change of) liver, not elsewhere classified
CPT/HCPCS: 76770

== ENCOUNTER → 2021-03-14 | Outpatient (CLI) | payer BC ==
[2021-03-14 23:15] LABS: HCT 37.8 % (37.2-46.3); HGB 11.9 g/dL (12.0-15.0); MCH 33.8 pg (27.0-32.0); MCHC 31.5 g/dL (32.0-37.0); MCV 107.4 fL (80.0-97.0); Mean Platelet Volume 9.3 fL (9.5-12.2); Platelet Count 291 X 10*3/uL (140-440); RBC 3.52 X 10*6/uL (4.10-5.20); RDW 13.4 % (11.5-14.5); WBC 6.36 X 10*3/uL (4.50-10.00)
[2021-03-15 01:26] LABS: Erythrocyte Sedimentation Rate 34 mm/Hr (0-30)
[2021-03-15 04:58] LABS: C Reactive Protein <0.30 mg/dL (0.00-0.80)
== END | disposition home or self-care (01) ==
LOC: LABWHC1 16:25
PROVIDERS: ATTEND Orthopaedic Surgery
DX: S72.052A Unspecified fracture of head of left femur, initial encounter for closed fracture (principal); X58.XXXA Exposure to other specified factors, initial encounter
CPT/HCPCS: 36415; 82306; 85027; 85652; 86140

== ENCOUNTER → 2021-04-12 | Outpatient (CLI) | payer BC ==
[2021-04-12 15:41] LABS: HCT 36.5 % (37.2-46.3); HGB 11.7 g/dL (12.0-15.0); MCH 34.7 pg (27.0-32.0); MCHC 32.1 g/dL (32.0-37.0); MCV 108.3 fL (80.0-97.0); Mean Platelet Volume 9.4 fL (9.5-12.2); Platelet Count 266 X 10*3/uL (140-440); RBC 3.37 X 10*6/uL (4.10-5.20); RDW 13.8 % (11.5-14.5); WBC 4.81 X 10*3/uL (4.50-10.00)
[2021-04-12 16:19] LABS: Basophils # (A) 0.03 X 10*3/uL (0.00-0.10); Basophils % (A) 0.6 %; Eosinophils % (A) 2.1 %; Lymphocytes # (A) 1.94 X 10*3/uL (0.90-5.00); Lymphocytes % (A) 40.3 %; Monocytes # (A) 0.43 X 10*3/uL (0.20-1.00); Monocytes % (A) 8.9 %; Neutrophils % (A) 47.9 %
[2021-04-12 16:20] LABS: Macrocytosis (M) 2+
[2021-04-12 17:44] LABS: Erythrocyte Sedimentation Rate 26 mm/Hr (0-30)
== END | disposition home or self-care (01) ==
LOC: LABWHC1 08:59
PROVIDERS: ATTEND Orthopaedic Surgery
DX: M25.552 Pain in left hip (principal); M25.452 Effusion, left hip
CPT/HCPCS: 36415; 85025; 85652; 86140

== ENCOUNTER → 2021-06-19 | Outpatient (CLI) | payer BC ==
[2021-06-19 17:11] LABS: Creatinine,Urine Random 68.2 mg/dL; Protein/Creatinine Ratio,Urine 0.147
[2021-06-19 22:58] LABS: Appearance,Urine Clear (Clear); Bilirubin,Urine Negative (Negative); Blood,Urine Negative (Negative); Color,Urine Yellow (Yellow); Ketones,Urine Negative (Negative); Leukocyte Esterase,Urine Negative (Negative); Nitrite,Urine Negative (Negative); Protein,Urine Negative (Negative); Specific Gravity,Urine 1.016 (1.001-1.030); Urobilinogen,Urine 0.2 (0.2,1.0)
[2021-06-19 23:20] LABS: Basophils # (A) 0.02 X 10*3/uL (0.00-0.10); Basophils % (A) 0.4 %; Eosinophils # (A) 0.11 X 10*3/uL (0.04-0.35); Eosinophils % (A) 2.3 %; HCT 35.5 % (37.2-46.3); HGB 11.3 g/dL (12.0-15.0); Immature Grans, Automated 0.2 %; Lymphocytes # (A) 2.42 X 10*3/uL (0.90-5.00); Lymphocytes % (A) 50.8 %; MCHC 31.8 g/dL (32.0-37.0); MCV 113.1 fL (80.0-97.0); Mean Platelet Volume 9.6 fL (9.5-12.2); Monocytes # (A) 0.35 X 10*3/uL (0.20-1.00); Monocytes % (A) 7.4 %; NRBC Per 100 WBC 0 /100 WBCS (0.0-0.0); Neutrophils # (A) 1.85 X 10*3/uL (1.80-7.70); Neutrophils % (A) 38.9 %; Platelet Count 278 X 10*3/uL (140-440); RBC 3.14 X 10*6/uL (4.10-5.20); RDW 14.6 % (11.5-14.5); WBC 4.76 X 10*3/uL (4.50-10.00)
[2021-06-19 23:28] LABS: % Iron Saturation 24.1 (12.00-45.00); African American GFR (CKD) 96.1 (60.0-200.0); Albumin 3.7 g/dL (3.8-4.9); Anion Gap 11.2 mmol/L (10.00-18.00); BUN/Creat Ratio 14.45 Ratio (12.00-20.00); Blood Urea Nitrogen 11.5 mg/dL (9.0-27.0); Calcium 8.7 mg/dL (8.7-10.3); Carbon Dioxide 22.9 mmol/L (20.0-27.5); Non-African American GFR(CKD) 82.9 (60.0-200.0); Phosphorus 3.3 mg/dL (2.4-5.1); Uric Acid 4.3 mg/dL (2.9-7.7)
== END | disposition home or self-care (01) ==
LOC: LABWHC1 16:13
PROVIDERS: ATTEND Nurse Practitioner Family
DX: N18.31 Chronic kidney disease, stage 3a (principal); N25.81 Secondary hyperparathyroidism of renal origin; E55.9 Vitamin D deficiency, unspecified; M10.9 Gout, unspecified; D64.9 Anemia, unspecified; R80.9 Proteinuria, unspecified; N39.0 Urinary tract infection, site not specified
CPT/HCPCS: 36415; 80048; 81003; 82040; 82306; 82570; 82728; 83540; 83550; 83735; 83970; 84100; 84156; 84550; 85025

== ENCOUNTER → 2022-07-14 | Outpatient (CLI) | payer BC ==
--- NOTE | 2022-07-14 12:41 | US ---
EXAMINATION TYPE: US kidneys/renal and bladder DATE OF EXAM: 07/14/2022 COMPARISON: US February 14 2021 CLINICAL HISTORY: N18.2 CKD STAGE II. EXAM MEASUREMENTS: Right Kidney: 10.7 x 4.9 x 5.3 cm Left Kidney: 10.7 x 4.3 x 5.0 cm Right Kidney: hydronephrosis Left Kidney: wnl Bladder: wnl Bilateral Jets seen: yes [id number] right-sided hydronephrosis is redemonstrated. No nephrolithiasis is seen. No laverne s are identified. The urinary bladder is anechoic. Bilateral ureteral jets are seen. IMPRESSION: Mild to moderate right-sided hydronephrosis similar in appearance to prior study. Conside r UPJ stricture or stenosis as distal right ureter jet is seen in the bladder. Correlate clinically. Consider nuclear medicine follow-up to further evaluate.
== END | disposition home or self-care (01) ==
LOC: RADUSWWP 12:07
PROVIDERS: ATTEND Internal Medicine
DX: N18.2 Chronic kidney disease, stage 2 (mild) (principal); N13.30 Unspecified hydronephrosis
CPT/HCPCS: 76770

== ENCOUNTER → 2022-08-07 | Outpatient (CLI) | payer BC ==
[~2022-08-07] MED LIST changes: -DEXAMETHASONE SOD PHOSPHATE 10 MG/ML 1 ML VIAL IV ONE; +FUROSEMIDE 10 MG/ML 2 ML VIAL IV ONE; -HYDROmorphone 0.5 MG/0.5 ML SYRINGE IVP PRN; -LACTATED RINGERS 1,000 ML IV SCH; -ONDANSETRON 4 MG/2 ML VIAL IVP ONE; -Pre Op ABX Message 1 EACH MISC MISCELLANE ONE
--- NOTE | 2022-08-07 15:03 | NM ---
EXAMINATION TYPE: NM lasix renogram DATE OF EXAM: 08/07/2022 COMPARISON: 07/14/2022 HISTORY: End-stage renal disease Following administration of 9.9 mCi Tc 99m MAG3 with 20mg Lasix. Immediate images post injection FINDINGS: Left: 53.6 %. Right: 46.4 %. Max renal flow left: 3 minutes. Max renal flow right: 3 minutes. Satisfactory accumulation of radiotracer within both renal collecting systems. After the administrati on of Lasix, there is prompt excretion from both collecting systems. T 1/2 left: 15 minutes minutes. T 1/2 right: 14 minutes minutes. IMPRESSION: 1. Mild right hydronephrosis. However, flow, uptake and excretion is symmetric bilaterally
== END | disposition home or self-care (01) ==
LOC: RADNMMAIN 12:47
PROVIDERS: ATTEND Urology
DX: N18.6 End stage renal disease (principal); N13.30 Unspecified hydronephrosis
CPT/HCPCS: 78708; A9562

== ENCOUNTER 2022-09-15 07:30 | Emergency (ER) | payer BC ==
[2022-09-15 07:44] VITALS: TEMP 97.6
[2022-09-15] MEDS ORDERED: KETOROLAC 15 MG/ML 1 ML VIAL IM STA (07:48)
[2022-09-15] MEDS ORDERED: MORPHINE SULFATE 2 MG/ML SYRINGE IM STA (07:48)
--- NOTE | 2022-09-15 07:54 | ED ---
Upper Extremity HPI - General Chief Complaint: Extremity Injury, Upper Stated Complaint: fall - lt wrist injury Time Seen by Provider: 09/15/22 07:32 Source: patient, family, RN notes reviewed Mode of arrival: ambulatory Limitations: no limitations - History of Present Illness Initial Comments: This is a 57-year-old female who presents to the emergency department for a fall. States that earlier this morning she was cleaning the floor after her dog dragged mud into the house, when she slipped and fell, landing on her left wrist. She has a minor abrasion to the right elbow, but states that that is not particularly bothersome. The pain is primarily in the left wrist and going up the forearm. She is unable to move the wrist whatsoever. She has not yet taken anything for her pain. Denies any fevers, chills, sore throat, cough, dyspnea, chest pain, palpitations, abdominal pain, nausea, vomiting, diarrhea, back pain, or headaches. MD Complaint: Injury to:: left, forearm, wrist Place: home Context: fall - Related Data Home Medications Medication Instructions Recorded Confirmed Potassium Chloride [Klor-Con 20] 20 meq PO BID 06/06/15 09/15/22 calcitrioL [Rocaltrol] 0.25 mcg PO MOFR 09/01/18 09/15/22 Acetaminophen-Codeine 300-30mg 1 tab PO DAILY PRN 09/15/22 09/15/22 [Tylenol w/codeine #3] Biotin [Biotin Disolve] 5,000 mcg PO DAILY 09/15/22 09/15/22 Cholecalciferol [Vitamin D3 (125 125 mcg PO DAILY 09/15/22 09/15/22 Mcg = 5000 Iu)] Cyanocobalamin (Vitamin B-12) 1,000 mcg PO DAILY 09/15/22 09/15/22 [Vitamin B-12] Diazepam 5mg Compounded Suppository 5 - 10 mg RECTAL DAILY PRN 09/15/22 09/15/22 Diphenoxylate HCl/Atropine 1 tab PO TID PRN 09/15/22 09/15/22 [Lomotil 2.5-0.025 mg Tablet] Esomeprazole Magnesium [NexIUM] 40 mg PO BID 09/15/22 09/15/22 Ferrous Sulfate [Feosol] 325 mg PO DAILY 09/15/22 09/15/22 Lidocaine 2% Cream 1 applic RECTAL DAILY PRN 09/15/22 09/15/22 Magnesium Oxide [Magnesium] 500 mg PO DAILY 09/15/22 09/15/22 Nifedipine 0.2% Compounded Cream 1 applic RECTAL TID PRN 09/15/22 09/15/22 QUEtiapine [SEROquel] 25 mg PO HS 09/15/22 09/15/22 Warfarin Sodium 4 mg PO DAILY 09/15/22 09/15/22 Previous Rx's Medication Instructions Recorded HYDROcodone/APAP 7.5-325MG [Doucette 1 tab PO Q6HR PRN 3 Days #12 tab 09/15/22 7.5-325] Allergies Allergy/AdvReac Type Severity Reaction Status Date / Time Cephalosporins Allergy Unknown Elevated Verified 09/15/22 11:01 Heart Rate, Rash Review of Systems ROS Statement: Those systems with pertinent positive or pertinent negative responses have been documented in the HPI. ROS Other: All systems not noted in ROS Statement are negative. Past Medical History Past Medical History: Deep Vein Thrombosis (DVT), Eye Disorder, GERD/Reflux, Pulmonary Embolus (PE) Additional Past Medical History / Comment(s): MIGRAINE HEADACHES,"KIDNEY DISEASE "- DOCTOR IS WATCHING History of Any Multi-Drug Resistant Organisms: None Reported Past Surgical History: Bowel Resection Past Anesthesia/Blood Transfusion Reactions: No Reported Reaction Past Psychological History: Depression Smoking Status: Never smoker Past Alcohol Use History: Occasional Past Drug Use History: None Reported - Past Family History Mother Family Medical History: No Reported History Father Family Medical History: Cancer Additional Family Medical History / Comment(s): COLON CANCER General Exam Limitations: no limitations General appearance: alert, in distress Head exam: Present: atraumatic, normocephalic, normal inspection Respiratory exam: Present: normal lung sounds bilaterally. Absent: respiratory distress, wheezes, rales, rhonchi, stridor Cardiovascular Exam: Present: regular rate, normal rhythm, normal heart sounds. Absent: systolic murmur, diastolic murmur, rubs, gallop, clicks Extremities exam: Present: other (Obvious deformity to the left wrist with notable swelling to the distal aspect of the radius. Limited passive range of motion secondary to pain. 2+ radial pulses.) Neurological exam: Present: alert, oriented X3, CN II-XII intact Psychiatric exam: Present: normal affect, normal mood Skin exam: Present: warm, dry, intact, normal color. Absent: rash Course Vital Signs 09/15/22 09/15/22 09/15/22 07:41 09:43 09:48 Temperature 97.6 F Pulse Rate 74 74 84 Respiratory 16 18 18 Rate Blood Pressure 117/76 106/68 160/68 O2 Sat by Pulse 99 95 99 Oximetry 09/15/22 09/15/22 09/15/22 09:49 09:53 09:58 Temperature Pulse Rate 74 68 75 Respiratory 18 18 18 Rate Blood Pressure 107/75 113/77 108/75 O2 Sat by Pulse 99 100 100 Oximetry 09/15/22 09/15/22 10:03 11:13 Temperature Pulse Rate 77 77 Respiratory 18 18 Rate Blood Pressure 107/68 98/75 O2 Sat by Pulse 99 99 Oximetry Procedures - Orthopedic Fracture Reduction Fracture #1 Consent Obtained: verbal consent Side: left Fracture Reduction Location: radius, ulna Analgesia: procedural sedation Technique: direct manipulation, traction/counter-traction Post Reduction X-rays Demonstrate: acceptable reduction Post-Reduction Neuro Exam: intact Post-Reduction Vascular Exam: intact Splint Applied: Yes Patient Tolerated Procedure: well - Orthopedic Splinting/Casting Injury #1 Side: left Upper Extremity Injury Location: wrist Upper Extremity Immobilizer: sugar tong splint Medical Decision Making - Medical Decision Making This is a 57-year-old female who presents to the emergency department for a left wrist injury after a fall. Was pt. sent in by a medical professional or institution? @ -No Did you speak to anyone other than the patient for history? @ -No Did you review nursing and triage notes? @ -Yes, and I agree, it is accurate with regards to the patient's symptoms. Were old charts reviewed? @ -No Differential Diagnosis? @ -Differential Wrist Pain/Injury: Fracture, dislocation, contusion, sprain, this is not meant to be an all- inclusive list. EKG interpreted by me (3pts min.)? @ -None X-rays interpreted by me (1pt min.)? @ -X-ray of the left wrist and forearm obtained. My interpretation reveals a displaced fracture of the left distal radius and a fracture of the ulnar styloid process. CT interpreted by me (1pt min.)? @ -None U/S interpreted by me (1pt. min.)? @ -None What testing was considered but not performed? (CT, X-rays, U/S, labs)? Why? @ -None What meds were considered but not given? Why? @ -None Did you discuss the management of the patient with other professionals? @ -Yes, I spoke with Ava at [facility] who advised reduction with splinting and follow up in the office this week. Did you reconcile home meds? @ -No Was smoking cessation discussed for >3mins.? @ -No Was critical care preformed (if so, how long)? @ -No Were there social determinants of health that impacted care today? How? (Homelessness, low income, unemployed, alcoholism, drug addiction, transportation, low edu. Level, literacy, decrease access to med. care, group home, rehab)? @ -No Was there de-escalation of care discussed even if they declined? (Discuss DNR or withdrawal of care, Hospice)? @ -No What co-morbidities impacted this encounter? (DM, HTN, Smoking, COPD, CAD, Cancer, CVA, Hep., AIDS, mental health diagnosis, sleep apnea, morbid obesity)? @ -None Was patient admitted / discharged? @ -Discharged. Initial x-ray of the left wrist and forearm revealed displaced fracture of the left distal radius and ulnar styloid process. Case discussed with orthopedics, who advised reduction and splinting the patient afterwards. Conscious sedation was performed with Dr. Newton. The fracture was reduced and the patient was placed in a sugar tong splint. Postreduction x-rays reveal improvement in the dorsal angulation and the impaction was also improved. However, the fracture to the ulnar styloid process became slightly more displaced. This was discussed with orthopedics, who reviewed the postreduction x-rays. They advised that the patient can follow-up at their office and no further reduction needs to be done in the emergency department. Prescription for Doucette provided with dosing instructions reviewed. Advised alternating with ibuprofen and Tylenol and taking the Doucette sparingly when her pain is the most severe. Also advised to avoid driving or operating machinery when taking this. She is instructed to apply ice for 15-20 minutes every 2-3 hours and keep the arm elevated. Information for orthopedics follow-up provided. She'll contact them for a follow-up appointment. Undiagnosed new problem with uncertain prognosis? @ -None Drug Therapy requiring intensive monitoring for toxicity (Heparin, Nitro, Insulin, Cardizem)? @ -None Were any procedures done? @ -Yes, conscious sedation for reduction and splinting of fracture. Diagnosis/symptom? @ -Distal radius fracture, ulnar styloid fracture Acute, or Chronic, or Acute on Chronic? @ -Acute Uncomplicated (without systemic symptoms) or Complicated (systemic symptoms)? @ -Uncomplicated Side effects of treatment? @ -None Exacerbation, Progression, or Severe Exacerbation] @ -Not applicable Poses a threat to life or bodily function? @ -This will limit her ability to use the left arm. Return precautions reviewed in depth, the patient is instructed to return to the emergency department with any new, worsening, or concerning symptoms. Patient verbalized understanding. This case was discussed in detail with the attending ED physician, Dr. Newton. Presentation, findings, and treatment plan discussed in detail as well. - Radiology Data Radiology results: report reviewed, image reviewed Disposition Clinical Impression: Distal radius fracture, left, Fracture of ulnar styloid Disposition: HOME SELF-CARE Instructions (If sedation given, give patient instructions): Wrist Fracture in Adults (ED), Moderate Sedation (ED), Splint Care (ED) Additional Instructions: Return to the emergency department with any new, worsening, or concerning symptoms. Alternate with ibuprofen and Tylenol as needed for pain relief. Take the Doucette sparingly when your pain is the most severe and avoid driving or operating machinery when taking this. Keep the wrist elevated and apply ice for 15-20 minutes every 2-3 hours. Contact orthopedics as listed below as soon as you are discharged and make sure they see you this week for a follow-up appointment. Prescriptions: HYDROcodone/APAP 7.5-325MG [Doucette 7.5-325] 1 tab PO Q6HR PRN 3 Days #12 tab PRN Reason: Pain Is patient prescribed a controlled substance at d/c from ED?: Yes When asked, does pt state using other controlled substances?: Yes If prescribed controlled substance>3 days was MAPS reviewed?: Prescribed <3 Days Referrals: Jd Dailey DO [Primary Care Provider] - 1-2 days Shweta Schuster DO [Doctor of Osteopathic Medicine] - 1-2 days
--- NOTE | 2022-09-15 08:15 | XR ---
EXAMINATION TYPE: XR forearm 2 views LT, XR wrist complete 4 views LT DATE OF EXAM: 09/15/2022 COMPARISON: NONE HISTORY: 57-year-old female pain after fall FINDINGS: Forearm: No significant elbow joint effusion seen on the crosstable, partially extended lateral view. No acute fracture of the more proximal to mid radius or ulna. Wrist: There is a comminuted, impacted, dorsally angulated fracture of the distal radial metaphysis and epip hysis. Intra-articular extension into the radiolunate joint. There is 5 mm of dorsal displacement cayla ng with 7 mm of impaction, and 30 degrees of dorsal angulation. Additional impacted and slightly dors ally angulated fracture of the ulnar styloid process. IMPRESSION: Wrist: 1. Comminuted, impacted, and dorsally angulated fracture of the distal radial metaphysis and epiphysi s. Intra-articular extension into the radiolunate joint. 2. Additional impacted and dorsally angulated fracture through the base of the ulnar styloid process. Forearm: 3. No acute fracture at the more proximal or mid aspect of the radius or ulna.
[2022-09-15] MEDS ORDERED: HYDROmorphone 1 MG/ML 1 ML SYRINGE IVP STA (08:25)
[2022-09-15] MEDS ORDERED: PROPOFOL 10 MG/ML 20 ML VIAL IV ONE (09:18)
[2022-09-15 09:44] VITALS: RESP 18
[2022-09-15 10:04] VITALS: PULSE 77
--- NOTE | 2022-09-15 10:18 | XR ---
EXAMINATION TYPE: XR wrist complete LT DATE OF EXAM: 09/15/2022 COMPARISON: NONE HISTORY: 57-year-old female postreduction x-ray TECHNIQUE: 3 views FINDINGS: Interval placement of fiberglass splint. Patient's hand is in radial deviation. Redemonstrated commin uted, impacted fracture distal radial epiphysis and metaphysis with intra-articular extension into th e radiolunate joint. There is approximately 1 mm articular surface gap at the radiolunate joint. Dors al angulation has improved though there is persistent dorsal displacement now 6 mm versus 5 mm, previ ously. Impaction measures 3 mm versus 7 mm, previously. Approximately 2 mm of radial displacement of the transverse fracture at the base of the ulnar styloid process. IMPRESSION: 1. Interval placement of fiberglass splint. Overall improvement in the degree of angulation of the co mminuted distal radial metaphyseal and epiphyseal fracture. Dorsal displacement measures 6 mm versus 5 mm, previously. Impaction measures 3 mm versus 7 mm, previously. 2. Intra-articular extension into the radiolunate joint. There is a 1 mm wide articular gap noted he re. 3. Transverse fracture through the base of the ulnar styloid process shows 2 mm of radial displacemen t now.
[2022-09-15 11:15] VITALS: BP 98/75
== END 2022-09-15 11:15 | disposition home or self-care (01) ==
LOC: EC 07:30
DX: S52.502A Unspecified fracture of the lower end of left radius, initial encounter for closed fracture (principal); S52.612A Displaced fracture of left ulna styloid process, initial encounter for closed fracture; K21.9 Gastro-esophageal reflux disease without esophagitis; F32.A Depression, unspecified; Z79.01 Long term (current) use of anticoagulants; Z79.899 Other long term (current) drug therapy; Z86.711 Personal history of pulmonary embolism; Z86.718 Personal history of other venous thrombosis and embolism; Z88.1 Allergy status to other antibiotic agents; W01.0XXA Fall on same level from slipping, tripping and stumbling without subsequent striking against object, initial encounter; Y93.E5 Activity, floor mopping and cleaning
CPT/HCPCS: 73090; 73110; 99284; 96374; 96372 ×2; 25605; 99152; J2270; J1170; J1885; J2704

== ENCOUNTER → 2022-09-29 | Outpatient (CLI) | payer BC ==
--- NOTE | 2022-09-29 08:19 | BD ---
EXAMINATION TYPE: Axial Bone Density DATE OF EXAM: 09/29/2022 CLINICAL HISTORY: 57 years old Female. ICD-10 CODE: M89.9 DISORDER OF BONE Height: 63 Weight: 155 FRAX RISK QUESTIONS: Alcohol (3 or more units per day): no Family History (Parent hip fracture): no Glucocorticoids (More than 3mos): no History of Fracture in Adulthood: Hip, Forearm, Secondary Osteoporosis: 1. Type 1 Diabetes: no 2. Hyperthyroidism: no 3. Menopause before 45: no 4. Malnutrition: no 5. Chronic liver disease: no Rheumatoid Arthritis: no Current Tobacco Use: no RISK FACTORS HISTORY OF: Hip Fracture (Right/Left): lt hip When: Feb 2021 Spine Fracture: no History of Wrist Fracture: no Surgery to Spine/Hip(right/left)/Wrist (right/left): Lt hip Feb 2021 Family History of Osteoporosis: no Active: yes Diet low in dairy products/other sources of calcium: yes Postmenopausal woman: yes Take estrogen and/or progesterone medications: no Lost more than 2 inches in height since high school: no Frequent falls: yes Poor Health: no Hyperparathyroidism: yes Adrenal Insufficiency: no MEDICATIONS: Prednisone or How Long: Thyroid Medications: no Osteoporosis Medications: no Additional Medications: Calcitrol, Reflux Meds, Blood Thinner, Depression Meds, Vit D, Magnesium, Additional History: EXAM MEASUREMENTS: Bone mineral densitometry was performed using the [employer]. Bone mineral density as measured about the Lumbar spine is: ----- L1-L4(G/cm2): 1.098 T Score Values are as follows: ----- L1: -1.1 ----- L2: -1.0 ----- L3: -0.6 ----- L4: 0.0 ----- L1-L4: -0.7 Z Score Values are as follows: ----- L1: -0.3 ----- L2: -0.2 ----- L3: 0.2 ----- L4: 0.9 ----- L1-L4: 0.1 Baseline Study Bone mineral density about the R hip (g/cm2): 0.724 T Score values are as follows: -----R Neck: -2.3 -----R Total: -2.0 Z Score values are as follows: -----R Neck: -1.3 -----R Total: -1.4 Baseline Study FRAX%s: The graph provided illustrates a 16.6% chance for a major osteoporotic fx and a 2.7% chance f or the hips probability for fx in 10 years time. IMPRESSION: Osteopenia (T Score between -2.5 and -1). There is slightly increased risk of fracture and the patient may be considered for treatment. Re-Screen 2-5 years. NOTE: T-SCORE=SD OF THE YOUNG ADULT MEAN.
== END | disposition home or self-care (01) ==
LOC: RADBDWWP 07:19
PROVIDERS: ATTEND Family Medicine
DX: M85.89 Other specified disorders of bone density and structure, multiple sites (principal)
CPT/HCPCS: 77080

== ENCOUNTER → 2023-03-26 | Outpatient (CLI) | payer BC ==
[2023-03-26 13:21] LABS: Creatinine,Urine Random 47.2 mg/dL; Protein/Creatinine Ratio,Urine 0.233
[2023-03-26 16:18] LABS: Basophils # (A) 0.03 X 10*3/uL (0.00-0.10); Basophils % (A) 0.6 %; Eosinophils # (A) 0.07 X 10*3/uL (0.04-0.35); Eosinophils % (A) 1.3 %; HCT 38.4 % (37.2-46.3); HGB 12.6 g/dL (12.0-15.0); Lymphocytes # (A) 2.18 X 10*3/uL (0.90-5.00); Lymphocytes % (A) 41.9 %; MCH 30.1 pg (27.0-32.0); MCHC 32.8 g/dL (32.0-37.0); MCV 91.6 FL (80.0-97.0); Mean Platelet Volume 10.3 FL (9.5-12.2); Monocytes # (A) 0.43 X 10*3/uL (0.20-1.00); Monocytes % (A) 8.3 %; NRBC Per 100 WBC 0 X 10*3/uL (0.00-0.01); Neutrophils # (A) 2.48 X 10*3/uL (1.80-7.70); Neutrophils % (A) 47.7 %; Platelet Count 210 X 10*3/uL (140-440); RBC 4.19 X 10*6/uL (4.10-5.20); RDW 12.5 % (11.5-14.5)
[2023-03-26 16:44] LABS: % Iron Saturation 44.89 (12.00-45.00); BUN/Creat Ratio 14.14 Ratio (12.00-20.00); Blood Urea Nitrogen 9.9 mg/dL (9.0-27.0); Calcium 9.1 mg/dL (8.7-10.3); Chloride 110 mmol/L (96-109); Glucose 95 mg/dL (70-110); Iron 123 UG/DL (50-170); Magnesium 1.3 mg/dL (1.5-2.4); Phosphorus 3.2 mg/dL (2.4-5.1); Potassium 3.5 mmol/L (3.5-5.5); Sodium 142 mmol/L (135-145); Total Iron Binding Capacity 274 UG/DL (228-460); Uric Acid 2.7 mg/dL (2.9-7.7)
[2023-03-26 17:18] LABS: Appearance,Urine Clear (Clear); Bilirubin,Urine Negative (Negative); Blood,Urine Negative (Negative); Color,Urine Yellow (Yellow); Ketones,Urine Negative (Negative); Nitrite,Urine Negative (Negative); PH, Urine 6.5; Urobilinogen,Urine 0.2 E.U./DL
[2023-03-26 17:27] LABS: Bacteria,Urine None Seen (None Seen)
== END | disposition home or self-care (01) ==
LOC: LABWHC1 11:11
PROVIDERS: ATTEND Internal Medicine Nephrology
DX: E55.9 Vitamin D deficiency, unspecified (principal); N25.81 Secondary hyperparathyroidism of renal origin; M10.9 Gout, unspecified; N39.0 Urinary tract infection, site not specified; N18.2 Chronic kidney disease, stage 2 (mild); D63.1 Anemia in chronic kidney disease; R80.9 Proteinuria, unspecified
CPT/HCPCS: 36415; 80048; 81001; 82040; 82306; 82570; 82728; 83540; 83550; 83735; 83970; 84100; 84156; 84550; 85025

== ENCOUNTER 2023-06-10 18:05 | Emergency (ER) | payer BC ==
--- NOTE | 2023-06-10 18:31 | ED ---
Fall HPI - General Source: patient, RN notes reviewed Mode of arrival: ambulatory Limitations: no limitations - History of Present Illness MD Complaint: fall <Shea Bolton - Last Filed: 06/10/23 18:28> <Casey Varela - Last Filed: 06/11/23 02:25> - General Chief Complaint: Fall Stated Complaint: Left rib pain Time Seen by Provider: 06/10/23 18:29 - History of Present Illness Initial Comments: This is a 58-year-old female who presents to the emergency department for a fall. About a week ago, the patient slipped and fell in her bathroom, and landed with her left rib cage on the side of the bathtub. She has since had increasing pain to this area. Pain is worse when she tries to breathe. Her PCP advised she come to the emergency department for imaging to see if she has any rib fractures. (Shea Bolton) 58-year-old female presenting with chief complaint of rib pain. Patient states that about a week ago she slipped and fell in her bathroom landing on the left side of her rib cage on the side of the bathtub. Patient has had sharp pain to this area. Pain is worse with breathing, sneezing, coughing. She is having no shortness of breath. She was advised by her PCP to get an x-ray and rule out rib fractures. (Casey Varela) - Related Data Home Medications Medication Instructions Recorded Confirmed Potassium Chloride [Klor-Con 20] 20 meq PO BID 06/06/15 09/15/22 calcitrioL [Rocaltrol] 0.25 mcg PO MOFR 09/01/18 09/15/22 Acetaminophen-Codeine 300-30mg 1 tab PO DAILY PRN 09/15/22 09/15/22 [Tylenol w/codeine #3] Biotin [Biotin Disolve] 5,000 mcg PO DAILY 09/15/22 09/15/22 Cholecalciferol [Vitamin D3 (125 125 mcg PO DAILY 09/15/22 09/15/22 Mcg = 5000 Iu)] Cyanocobalamin (Vitamin B-12) 1,000 mcg PO DAILY 09/15/22 09/15/22 [Vitamin B-12] Diazepam 5mg Compounded Suppository 5 - 10 mg RECTAL DAILY PRN 09/15/22 09/15/22 Diphenoxylate HCl/Atropine 1 tab PO TID PRN 09/15/22 09/15/22 [Lomotil 2.5-0.025 mg Tablet] Esomeprazole Magnesium [NexIUM] 40 mg PO BID 09/15/22 09/15/22 Ferrous Sulfate [Feosol] 325 mg PO DAILY 09/15/22 09/15/22 Lidocaine 2% Cream 1 applic RECTAL DAILY PRN 09/15/22 09/15/22 Magnesium Oxide [Magnesium] 500 mg PO DAILY 09/15/22 09/15/22 Nifedipine 0.2% Compounded Cream 1 applic RECTAL TID PRN 09/15/22 09/15/22 QUEtiapine [SEROquel] 25 mg PO HS 09/15/22 09/15/22 Warfarin Sodium 4 mg PO DAILY 09/15/22 09/15/22 Previous Rx's Medication Instructions Recorded HYDROcodone/APAP 10-325MG [[place] 1 tab PO Q6HR PRN 3 Days #12 tab 09/15/22 10-325] Lidocaine 5% Patch [Lidoderm 5% 1 patch TOPICAL DAILY PRN #30 patch 06/10/23 Patch] Allergies Allergy/AdvReac Type Severity Reaction Status Date / Time Cephalosporins Allergy Unknown Elevated Verified 06/10/23 18:22 Heart Rate, Rash Review of Systems ROS Other: All systems not noted in ROS Statement are negative. <Shea Bolton - Last Filed: 06/10/23 18:28> ROS Other: All systems not noted in ROS Statement are negative. <Casey Varela - Last Filed: 06/11/23 02:25> ROS Statement: Those systems with pertinent positive or pertinent negative responses have been documented in the HPI. Past Medical History Past Medical History: Deep Vein Thrombosis (DVT), Eye Disorder, GERD/Reflux, Pulmonary Embolus (PE) Additional Past Medical History / Comment(s): MIGRAINE HEADACHES,"KIDNEY DISEASE "- DOCTOR IS WATCHING History of Any Multi-Drug Resistant Organisms: None Reported Past Surgical History: Bowel Resection Past Anesthesia/Blood Transfusion Reactions: No Reported Reaction Past Psychological History: Depression Smoking Status: Never smoker Past Alcohol Use History: Occasional Past Drug Use History: None Reported - Past Family History Mother Family Medical History: No Reported History Father Family Medical History: Cancer Additional Family Medical History / Comment(s): COLON CANCER <Shea Bolton - Last Filed: 06/10/23 18:28> General Exam Limitations: no limitations <Shea Bolton - Last Filed: 06/10/23 18:28> General appearance: alert, in no apparent distress Head exam: Present: atraumatic, normocephalic Eye exam: Present: normal appearance Neck exam: Present: normal inspection Respiratory exam: Present: normal lung sounds bilaterally. Absent: respiratory distress, wheezes, rales, rhonchi, stridor Cardiovascular Exam: Present: regular rate, normal rhythm, normal heart sounds. Absent: systolic murmur, diastolic murmur, rubs, gallop, clicks Neurological exam: Present: alert, oriented X3 Psychiatric exam: Present: normal affect, normal mood Skin exam: Present: warm, dry <Casey Varela - Last Filed: 06/11/23 02:25> - General Exam Comments Initial Comments: Visual Physical Exam Vital signs reviewed General: Well-appearing, nontoxic, no acute distress. Head: Normocephalic, atraumatic Eyes: PERRLA, EOMI ENT: Airway patent Chest: Nonlabored breathing Skin: No visual rash, normal skin tone Neuro: Alert and oriented 3 Musculoskeletal: No gross abnormalities (Shea Bolton) Course Vital Signs 06/10/23 18:19 Temperature 98.6 F Pulse Rate 74 Respiratory 18 Rate Blood Pressure 131/78 O2 Sat by Pulse 98 Oximetry Medical Decision Making <Shea Bolton - Last Filed: 06/10/23 18:28> <Casey Varela - Last Filed: 06/11/23 02:25> - Medical Decision Making I performed the QuickNote portion of this chart. Signed Shea Bolton PA-C. (Shea Bolton) Was pt. sent in by a medical professional or institution (ROSALINE Black, OPERATIONS AND INTELLIGENCE ASSISTANT, urgent care, hospital, or skilled nursing...) When possible be specific @ -No Did you speak to anyone other than the patient for history (EMS, parent, family, police, friend...)? What history was obtained from this source @ -No Did you review nursing and triage notes (agree or disagree)? Why? @ -I reviewed and agree with nursing and triage notes Were old charts reviewed (outside hosp., previous admission, EMS record, old EKG, old radiological studies, urgent care reports/EKG's, skilled nursing records)? Report findings @ -No old charts were reviewed Differential Diagnosis (chest pain, altered mental status, abdominal pain women, abdominal pain men, vaginal bleeding, weakness, fever, dyspnea, syncope, headache, dizziness, GI bleed, back pain, seizure, CVA, palpatations, mental health, musculoskeletal)? @ -Differential includes muscle strain, rib fracture, pneumothorax, hemothorax, this is not an all-inclusive list EKG interpreted by me (3pts min.). @ -As above X-rays interpreted by me (1pt min.). @Rib x-ray shows no acute osseous pathology CT interpreted by me (1pt min.). @ -None done U/S interpreted by me (1pt. min.). @ -None done What testing was considered but not performed or refused? (CT, X-rays, U/S, labs)? Why? @ -None What meds were considered but not given or refused? Why? @ -None Did you discuss the management of the patient with other professionals (professionals i.e. , PA, OPERATIONS AND INTELLIGENCE ASSISTANT, lab, RT, psych nurse, case management social worker, die presser, teacher, geographic area intelligence officer, rehabilitation case coordinator)? Give summary @ -No Was smoking cessation discussed for >3mins.? @ -No Was critical care preformed (if so, how long)? @ -No Were there social determinants of health that impacted care today? How? (Homelessness, low income, unemployed, alcoholism, drug addiction, transportation, low edu. Level, literacy, decrease access to med. care, senior care, rehab)? @ -No Was there de-escalation of care discussed even if they declined (Discuss DNR or withdrawal of care, Hospice)? DNR status @ -No What co-morbidities impacted this encounter? (DM, HTN, Smoking, COPD, CAD, Cancer, CVA, ARF, Chemo, Hep., AIDS, mental health diagnosis, sleep apnea, morbid obesity)? @ -None Was patient admitted / discharged? Hospital course, mention meds given and route, prescriptions, significant lab abnormalities, going to OR and other pertinent info. @ -58-year-old female presenting with chief complaint of left-sided rib pain. A week ago she fell hitting the left-sided rib cage on her bathtub. Workup is initiated by triage. Rib x-ray with chest x-ray shows no acute osseous pathology. Patient is then taken into the [facility] room by myself and examined. Heart and lungs are clear to auscultation. She does not appear short of breath or using increased respiratory effort. No signs of distress. She is educated on today's findings and supportive management at home. She is sent a prescription for lidocaine patches. Discharged home. Follow-up with PCP. Report back to ER with any new or worsening symptoms. Discussed return parameters and answered all questions. Patient conveyed verbal understanding and agreed to the plan. I discussed this case in detail with my attending Dr. Celis Undiagnosed new problem with uncertain prognosis? @ -No Drug Therapy requiring intensive monitoring for toxicity (Heparin, Nitro, Insulin, Cardizem)? @ -No Were any procedures done? @ -No Diagnosis/symptom? @ -Rib pain Acute, or Chronic, or Acute on Chronic? @ -Acute Uncomplicated (without systemic symptoms) or Complicated (systemic symptoms)? @ -Uncomplicated Side effects of treatment? @ -No Exacerbation, Progression, or Severe Exacerbation? @ -No Poses a threat to life or bodily function? How? (Chest pain, [place], [place], pneumonia, PE, COPD, DKA, ARF, appy, cholecystitis, CVA, Diverticulitis, Homicidal, Suicidal, threat to staff... and all critical care pts) @ -No (Casey Varela) Disposition <Shea Bolton - Last Filed: 06/10/23 18:28> Is patient prescribed a controlled substance at d/c from ED?: No Time of Disposition: 20:20 <Casey Varela - Last Filed: 06/11/23 02:25> Clinical Impression: Rib pain Disposition: HOME SELF-CARE Condition: Good Instructions (If sedation given, give patient instructions): Rib Fracture (ED) Additional Instructions: Follow-up with PCP. Report back to ER with any new or worsening symptoms. Take Motrin and Tylenol as needed for pain control. Prescriptions: Lidocaine 5% Patch [Lidoderm 5% Patch] 1 patch TOPICAL DAILY PRN #30 patch PRN Reason: Pain Referrals: Jd Dailey DO [Primary Care Provider] - 1-2 days
[2023-06-10 18:39] VITALS: BP 131/78; PULSE 74; RESP 18; TEMP 98.6
--- NOTE | 2023-06-10 18:45 | XR ---
EXAMINATION TYPE: XR ribs LT w pa chest xray DATE OF EXAM: 06/10/2023 6:36 PM CLINICAL INDICATION:Female, 58 years old with history of Pain; [facility] COMPARISON: None TECHNIQUE: XR ribs LT w pa chest xray; Frontal and oblique views of the ribs with frontal chest radio graph. FINDINGS: The ribs have a normal appearance. No evidence of fracture. Overall, the lungs are clear. The cardiac silhouette is normal in size. The remaining osseous structures are intact. IMPRESSION: 1. No acute osseous pathology.
== END 2023-06-10 20:45 | disposition home or self-care (01) ==
LOC: EC 18:05
DX: R07.81 Pleurodynia (principal); K21.9 Gastro-esophageal reflux disease without esophagitis; F32.A Depression, unspecified; Z79.899 Other long term (current) drug therapy; Z88.1 Allergy status to other antibiotic agents
CPT/HCPCS: 99283

== ENCOUNTER → 2023-07-28 | Outpatient (CLI) | payer BC ==
--- NOTE | 2023-07-30 00:45 | MM ---
Reason for Exam: Screening (asymptomatic). Risk Values: Sheila 5 year model risk: 0.9%. NCI Lifetime model risk: 5.1%. Tissue Density: The breasts are extremely dense, which lowers the sensitivity of mammography. Findings: Analyzed By CAD. The pattern is symmetrical. Benign spherical calcifications are within the right breast. Couple punctate calcifications are within the left breast No suspicious groups of microcalcifications, spiculated or lobular masses, architectural distortion or other secondary signs of malignancy are mammographically apparent. Overall Assessment: Benign, BI-RAD 2 Management: Screening Mammogram of both breasts in 1 year. A negative mammogram report should not preclude additional follow up of suspicious palpable abnormalities. Patient should continue monthly self breast exam. A clinical breast exam by your physician is recommended on an annual basis and results should be correlated with mammographic findings. Electronically signed and approved by: Celment Burgos D.O. Radiologis
== END | disposition home or self-care (01) ==
LOC: RADMAMWWP 16:28
PROVIDERS: ATTEND Obstetrics & Gynecology
DX: Z12.31 Encounter for screening mammogram for malignant neoplasm of breast (principal)
CPT/HCPCS: 77063; 77067

== ENCOUNTER → 2023-09-17 | Outpatient (CLI) | payer BC ==
--- NOTE | 2023-09-17 20:45 | US ---
EXAMINATION TYPE: US abdomen limited DATE OF EXAM: 09/17/2023 COMPARISON: NONE CLINICAL INDICATION: Female, 58 years old with history of K80.80 OTHER CHOLELITHIASIS WITHOUT OBSTRUC TION; known GB stones for 10 years TECHNIQUE: Multiple sonographic images of the right upper quadrant are obtained. FINDINGS: EXAM MEASUREMENTS: Liver Length: 17.4 cm Gallbladder Wall: 0.2 cm CBD: 0.5 cm Right Kidney: 10.7 x 4.3 x 4.9 cm Pancreas: portion seen appear wnl Liver: difficult to penetrate, possible focal fatty sparring Gallbladder: multiple stones seen, no wall thickened Evidence for sonographic Kaiser's sign: no CBD: wnl Right Kidney: wnl The visualized portions of the pancreas are within normal limits. Liver is diffusely hyperechoic with heterogenous echotexture. Consistent with hepatic steatosis. This appearance was slightly short spon dylotic hepatic masses. No gross evidence of mass. Noncirrhotic morphology. Gallstones demonstrated. No wall thickening or surrounding fluid identified. Negative sonographic Kaiser sign. Common bile barber t within normal limits. Right kidney is unremarkable without evidence of hydronephrosis, nephrolithia sis, or solid mass. IMPRESSION: 1. Cholelithiasis without evidence for acute cholecystitis. 2. Hepatic steatosis.
== END | disposition home or self-care (01) ==
LOC: RADUSWWP 14:52
PROVIDERS: ATTEND Family Medicine
DX: K76.0 Fatty (change of) liver, not elsewhere classified (principal); K80.80 Other cholelithiasis without obstruction
CPT/HCPCS: 76705

== ENCOUNTER → 2023-11-02 | Outpatient (CLI) | payer BC ==
[2023-11-02 21:04] LABS: Basophils # (A) 0.03 X 10*3/uL (0.00-0.10); Basophils % (A) 0.7 %; Eosinophils # (A) 0.07 X 10*3/uL (0.04-0.35); Eosinophils % (A) 1.7 %; HCT 38.6 % (37.2-46.3); HGB 12.3 g/dL (12.0-15.0); Immature Grans, Automated 0 %; Lymphocytes # (A) 2.12 X 10*3/uL (0.90-5.00); MCH 30.8 pg (27.0-32.0); MCHC 31.9 g/dL (32.0-37.0); MCV 96.5 FL (80.0-97.0); Mean Platelet Volume 10.7 FL (9.5-12.2); Monocytes # (A) 0.38 X 10*3/uL (0.20-1.00); Monocytes % (A) 9.1 %; NRBC Per 100 WBC 0 X 10*3/uL (0.00-0.01); Neutrophils # (A) 1.56 X 10*3/uL (1.80-7.70); Neutrophils % (A) 37.5 %; Platelet Count 228 X 10*3/uL (140-440); RDW 12.3 % (11.5-14.5); WBC 4.16 X 10*3/uL (4.50-10.00)
[2023-11-02 21:53] LABS: Albumin 4.3 g/dL (3.8-4.9); Blood Urea Nitrogen 14.5 mg/dL (9.0-27.0); Calcium 9.4 mg/dL (8.7-10.3); Carbon Dioxide 22.7 mmol/L (21.6-31.8); Chloride 108 mmol/L (96-109); Glucose 110 mg/dL (70-110); Iron 60 UG/DL (50-170); Magnesium 1.9 mg/dL (1.5-2.4); Phosphorus 3.9 mg/dL (2.4-5.1); Potassium 4.7 mmol/L (3.5-5.5); Sodium 141 mmol/L (135-145); Total Iron Binding Capacity 297 UG/DL (228-460); Uric Acid 5.3 mg/dL (2.9-7.7)
[2023-11-03 03:42] LABS: Microalbumin Creatinine Ratio <15 mg/g Cr (0-30); Urine Creatinine 82.1 mg/dL (28.0-217.0)
[2023-11-03 04:27] LABS: Appearance,Urine Clear (Clear); Bilirubin,Urine Negative (Negative); Blood,Urine Negative (Negative); Color,Urine Yellow (Yellow); Ketones,Urine Negative (Negative); Nitrite,Urine Negative (Negative); PH, Urine 5.5; Specific Gravity,Urine 1.019 (1.001-1.030); Urobilinogen,Urine 0.2 E.U./DL
== END | disposition home or self-care (01) ==
LOC: LABWHC1 15:49
PROVIDERS: ATTEND Internal Medicine Nephrology
DX: N18.2 Chronic kidney disease, stage 2 (mild) (principal); E55.9 Vitamin D deficiency, unspecified; N25.81 Secondary hyperparathyroidism of renal origin; M10.9 Gout, unspecified; N39.0 Urinary tract infection, site not specified; D63.1 Anemia in chronic kidney disease; R80.9 Proteinuria, unspecified
CPT/HCPCS: 36415; 80048; 81003; 82040; 82043; 82306; 82570; 82728; 83540; 83550; 83735; 83970; 84100; 84550; 85025

== ENCOUNTER → 2024-05-04 | Outpatient (CLI) | payer BC ==
[2024-05-04 15:02] LABS: Basophils # (A) 0.02 X 10*3/uL (0.00-0.10); Basophils % (A) 0.3 %; Eosinophils % (A) 1.5 %; HCT 39.8 % (37.2-46.3); Lymphocytes # (A) 1.47 X 10*3/uL (0.90-5.00); MCHC 32.7 g/dL (32.0-37.0); MCV 91.7 FL (80.0-97.0); Mean Platelet Volume 9.6 FL (9.5-12.2); Monocytes # (A) 0.44 X 10*3/uL (0.20-1.00); Monocytes % (A) 6.6 %; NRBC Per 100 WBC 0 X 10*3/uL (0.00-0.01); Platelet Count 274 X 10*3/uL (140-440); RBC 4.34 X 10*6/uL (4.10-5.20); RDW 13.4 % (11.5-14.5); WBC 6.67 X 10*3/uL (4.50-10.00)
[2024-05-04 15:43] LABS: Appearance,Urine Clear (Clear); Bilirubin,Urine Negative (Negative); Blood,Urine Negative (Negative); Color,Urine Yellow (Yellow); Ketones,Urine Negative (Negative); Nitrite,Urine Negative (Negative); PH, Urine 6.5; Specific Gravity,Urine 1.023 (1.001-1.030); Urobilinogen,Urine 0.2 E.U./DL
[2024-05-04 16:42] LABS: BUN/Creat Ratio 21.11 Ratio (12.00-20.00); Chloride 105 mmol/L (96-109); Glucose 102 mg/dL (70-110); Iron 136 UG/DL (50-170); Magnesium 1.8 mg/dL (1.5-2.4); Phosphorus 2.3 mg/dL (2.4-5.1); Potassium 3.5 mmol/L (3.5-5.5); Sodium 140 mmol/L (135-145); Total Iron Binding Capacity 335 UG/DL (228-460); Uric Acid 4.8 mg/dL (2.9-7.7)
[2024-05-04 16:43] LABS: Albumin 4.2 g/dL (3.8-4.9); Calcium 9.1 mg/dL (8.7-10.3); Carbon Dioxide 23.2 mmol/L (21.6-31.8)
[2024-05-04 17:00] LABS: Microalbumin Creatinine Ratio <12 mg/g Cr (0-30); Urine Creatinine 99.8 mg/dL (28.0-217.0)
== END | disposition home or self-care (01) ==
LOC: LABWHC1 11:07
PROVIDERS: ATTEND Nurse Practitioner Family
DX: N18.2 Chronic kidney disease, stage 2 (mild) (principal); D63.1 Anemia in chronic kidney disease; E55.9 Vitamin D deficiency, unspecified; N25.81 Secondary hyperparathyroidism of renal origin; M10.9 Gout, unspecified; N39.0 Urinary tract infection, site not specified; R80.9 Proteinuria, unspecified
CPT/HCPCS: 36415; 80048; 81003; 82040; 82043; 82306; 82570; 82728; 83540; 83550; 83735; 83970; 84100; 84550; 85025

== ENCOUNTER → 2024-08-02 | Outpatient (CLI) | payer BC ==
[2024-08-03 02:29] LABS: Basophils # (A) 0.03 X 10*3/uL (0.00-0.10); Basophils % (A) 0.6 %; HCT 39.8 % (37.2-46.3); HGB 12.9 g/dL (12.0-15.0); Lymphocytes # (A) 2.33 X 10*3/uL (0.90-5.00); Lymphocytes % (A) 47.6 %; MCH 30.8 pg (27.0-32.0); MCHC 32.4 g/dL (32.0-37.0); Mean Platelet Volume 10.4 FL (9.5-12.2); Monocytes # (A) 0.38 X 10*3/uL (0.20-1.00); Monocytes % (A) 7.8 %; NRBC Per 100 WBC 0 X 10*3/uL (0.00-0.01); Neutrophils # (A) 2.04 X 10*3/uL (1.80-7.70); Neutrophils % (A) 41.8 %; Platelet Count 233 X 10*3/uL (140-440); RBC 4.19 X 10*6/uL (4.10-5.20); RDW 12.1 % (11.5-14.5); WBC 4.89 X 10*3/uL (4.50-10.00)
[2024-08-03 02:51] LABS: Microalbumin Creatinine Ratio <11 mg/g Cr (0-30)
[2024-08-03 03:15] LABS: Albumin 4.2 g/dL (3.8-4.9); BUN/Creat Ratio 16.56 Ratio (12.00-20.00); Blood Urea Nitrogen 14.9 mg/dL (9.0-27.0); Calcium 9.2 mg/dL (8.7-10.3); Carbon Dioxide 25.2 mmol/L (21.6-31.8); Chloride 105 mmol/L (96-109); Glucose 109 mg/dL (70-110); Iron 62 UG/DL (50-170); Phosphorus 3.2 mg/dL (2.4-5.1); Potassium 4.2 mmol/L (3.5-5.5); Sodium 139 mmol/L (135-145); Total Iron Binding Capacity 307 UG/DL (228-460); Uric Acid 4.8 mg/dL (2.9-7.7)
[2024-08-03 03:50] LABS: Appearance,Urine Clear (Clear); Bilirubin,Urine Negative (Negative); Blood,Urine Negative (Negative); Color,Urine Yellow (Yellow); Ketones,Urine Negative (Negative); Nitrite,Urine Negative (Negative); PH, Urine 5.5; Specific Gravity,Urine 1.023 (1.001-1.030); Urobilinogen,Urine 0.2 E.U./DL
== END | disposition home or self-care (01) ==
LOC: LABWHC1 15:56
PROVIDERS: ATTEND Internal Medicine Nephrology
DX: E55.9 Vitamin D deficiency, unspecified (principal); N25.81 Secondary hyperparathyroidism of renal origin; N18.2 Chronic kidney disease, stage 2 (mild); D63.1 Anemia in chronic kidney disease; M10.9 Gout, unspecified; N39.0 Urinary tract infection, site not specified; R80.9 Proteinuria, unspecified
CPT/HCPCS: 36415; 80048; 81003; 82040; 82043; 82306; 82570; 82728; 83540; 83550; 83735; 83970; 84100; 84550; 85025

== ENCOUNTER → 2024-11-10 | Outpatient (CLI) | payer BC ==
[2024-11-10 19:20] LABS: Basophils # (A) 0.03 X 10*3/uL (0.00-0.10); Basophils % (A) 0.6 %; Eosinophils # (A) 0.07 X 10*3/uL (0.04-0.35); Eosinophils % (A) 1.5 %; HCT 37.9 % (37.2-46.3); HGB 12.2 g/dL (12.0-15.0); Immature Grans, Automated 0 %; Lymphocytes # (A) 2.38 X 10*3/uL (0.90-5.00); Lymphocytes % (A) 49.6 %; MCH 30.0 pg (27.0-32.0); MCHC 32.2 g/dL (32.0-37.0); MCV 93.3 FL (80.0-97.0); Monocytes # (A) 0.35 X 10*3/uL (0.20-1.00); Monocytes % (A) 7.3 %; NRBC Per 100 WBC 0 X 10*3/uL (0.00-0.01); Neutrophils # (A) 1.97 X 10*3/uL (1.80-7.70); Neutrophils % (A) 41.0 %; Platelet Count 220 X 10*3/uL (140-440); RBC 4.06 X 10*6/uL (4.10-5.20); RDW 12.2 % (11.5-14.5); WBC 4.80 X 10*3/uL (4.50-10.00)
[2024-11-10 19:43] LABS: Anion Gap 10.80 mmol/L (4.00-12.00); BUN/Creat Ratio 14.00 Ratio (12.00-20.00); Bilirubin,Urine Negative (Negative); Blood Urea Nitrogen 12.6 mg/dL (9.0-27.0); Blood,Urine Negative (Negative); Carbon Dioxide 23.2 mmol/L (21.6-31.8); Chloride 109 mmol/L (96-109); Color,Urine Yellow (Yellow); Glucose 107 mg/dL (70-110); Iron 79 UG/DL (50-170); Ketones,Urine Negative (Negative); Magnesium 1.8 mg/dL (1.5-2.4); Nitrite,Urine Negative (Negative); PH, Urine 6.0; Potassium 4.1 mmol/L (3.5-5.5); Sodium 143 mmol/L (135-145); Specific Gravity,Urine 1.020 (1.001-1.030); Total Iron Binding Capacity 304 UG/DL (228-460); Uric Acid 5.3 mg/dL (2.9-7.7); Urobilinogen,Urine 0.2 E.U./DL
[2024-11-10 19:44] LABS: Albumin 4.3 g/dL (3.8-4.9); Calcium 8.9 mg/dL (8.7-10.3); Ferritin 305.0 ng/mL (10.0-291.0)
[2024-11-10 19:54] LABS: Bacteria,Urine 1+ (None Seen)
== END | disposition home or self-care (01) ==
LOC: LABWHC1 16:34
PROVIDERS: ATTEND Internal Medicine Nephrology
DX: E55.9 Vitamin D deficiency, unspecified (principal); N25.81 Secondary hyperparathyroidism of renal origin; M10.9 Gout, unspecified; N39.0 Urinary tract infection, site not specified; N18.2 Chronic kidney disease, stage 2 (mild); D63.1 Anemia in chronic kidney disease
CPT/HCPCS: 36415; 80048; 81001; 82040; 82043; 82306; 82533; 82570; 82728; 83540; 83550; 83735; 83970; 84100; 84550; 85025